=== PATIENT | male | born 1970 | race Caucasian/White ===

== ENCOUNTER 2018-02-16 20:48 | Observation (INO) | payer SELFPAY ==
[2018-02-16 21:30] LABS: #Eosinphils 0.2 thou/uL (0.0-0.7); #Lymphocytes 1.8 thou/uL (1.20-3.40); #Monocytes 0.8 thou/uL (0.11-0.59); %Basophils 0.6 % (0.0-1.0); %Monocytes 9.5 % (0.0-10.0); %Neutrophils 63.9 % (42.0-75.0); Hemoglobin 13.3 g/dL (14.0-18.0); Mean Corpuscular Hemoglobin 34.2 pg (27.0-31.0); Mean Platelet Volume 7.3 fL (7.4-10.4); Platelet Count 240 thou/uL (130-400); RBC Distribution Width 10.8 % (11.5-14.5); White Blood Cell (WBC) Count 7.9 thou/uL (4.8-10.8)
[2018-02-16 21:57] LABS: Acetaminophen Less than 6.0 mcg/mL (10.0-30.0); Alcohol 144 mg/dL (Less than 10); Salicylate Less than 8.0 mg/dL (15.0-30.0)
[2018-02-16 21:58] LABS: ALT (SGPT) 8 U/L (8-55); AST (SGOT) 19 U/L (5-34); Alkaline Phosphatase 51 U/L (40-150); Anion Gap 12 mmol/L (10-20); BUN (Urea Nitrogen) 8 mg/dL (8.9-20.6); Bilirubin, Total 0.4 mg/dL (0.2-1.2); Calc. Creatinine Clearance 0 mL/min (70-130); Carbon Dioxide 24 mmol/L (22-29); Chloride 101 mmol/L (98-107); Estimated GFR-MDRD Greater than 90; Globulin 3.8 g/dL (2.4-3.5); Glucose 107 mg/dL (70-105); Potassium 3.3 mmol/L (3.5-5.1); Protein, Total 7.8 g/dL (6.0-8.3); Sodium 134 mmol/L (136-145)
--- NOTE | 2018-02-16 22:37 | PDOC.FPRHP ---
- History of Present Illness Chief Complaint: Olanzapine over dose History of Present Illness: This is a 47 yo male with a PMH of Bipolar disorder who presents to the ED with a cc of olanzapine overdose. EMS and ED doctor report that pt. took 20 olanzapine 5mg tablets in a suicide attempt. He reported that he and his girlfriend just broke up. In the room, pt. was unable to answer any questions due to his lethargy. - Allergies/Adverse Reactions Allergies Allergy/AdvReac Type Severity Reaction Status Date / Time No Known Drug Allergies Allergy Verified 02/17/18 01:44 - History PMHx: Bipolar PSHx: Unknown FHx: Unknown Social: Smokes 1/2 pack per day - Review of Systems ROS unobtainable: due to mental status (Pt. only reports that he is sleepy) - Vital signs BP: 117/66 HR: 81 RR: 16 Tmax: 97.6 Pox: 96% on ra Wt: 81.5 - Physical Exam Constitutional: other (Asleep, difficult to arouse, oriented to name and place) HEENT: normocephalic and atraumatic, MMM Neck: supple, trachea midline Heart: RRR, normal S1/S2, no murmurs/rubs/gallops Lungs: CTAB, no respiratory distress, good air movement, no wheezing Abdomen: soft, bowel sounds present, no masses/distention Musculoskeletal: normal structure, normal tone, ROM grossly normal Skin: no rash/lesions, good turgor Heme/Lymphatic: no unusual bruising or bleeding FMR H&P: Results - Labs Result Diagrams: 02/17/18 04:40 02/17/18 04:40 Lab results: WBC 7.9 thou/uL (4.8-10.8) 02/16/18 21:14 Hgb 13.3 g/dL (14.0-18.0) L 02/16/18 21:14 Hct 40.4 % (42.0-52.0) L 02/16/18 21:14 MCV 103.0 fL (78.0-98.0) H 02/16/18 21:14 Plt Count 240 thou/uL (130-400) 02/16/18 21:14 Neutrophils % 63.9 % (42.0-75.0) 02/16/18 21:14 Sodium 134 mmol/L (136-145) L 02/16/18 21:14 Potassium 3.3 mmol/L (3.5-5.1) L 02/16/18 21:14 Chloride 101 mmol/L (98-107) 02/16/18 21:14 Carbon Dioxide 24 mmol/L (22-29) 02/16/18 21:14 BUN 8 mg/dL (8.9-20.6) L 02/16/18 21:14 Creatinine 0.89 mg/dL (0.6-1.3) 02/16/18 21:14 Glucose 107 mg/dL (70-105) H 02/16/18 21:14 Calcium 9.0 mg/dL (7.8-10.44) 02/16/18 21:14 Total Bilirubin 0.4 mg/dL (0.2-1.2) 02/16/18 21:14 AST 19 U/L (5-34) 02/16/18 21:14 ALT 8 U/L (8-55) 02/16/18 21:14 Alkaline Phosphatase 51 U/L (40-150) 02/16/18 21:14 Serum Total Protein 7.8 g/dL (6.0-8.3) 02/16/18 21:14 Albumin 4.0 g/dL (3.5-5.0) 02/16/18 21:14 - EKG Interpretation EKG: NSR FMR H&P: A/P - Problem List (1) Suicide attempt by substance overdose Status: Acute Code(s): T65.92XA - TOXIC EFFECT OF UNSP SUBSTANCE, INTENTIONAL SELF-HARM, INIT (2) Intentional olanzapine overdose Status: Acute Code(s): T43.592A - POISONING BY OTH ANTIPSYCHOT/NEUROLEPT, SELF -HARM, INIT (3) Bipolar disorder Status: Acute Code(s): F31.9 - BIPOLAR DISORDER, UNSPECIFIED (4) Tobacco abuse disorder Status: Acute Code(s): Z72.0 - TOBACCO USE - Plan This is a 47 yo male with a pmh of bipolar disorder Suicide attempt by olanzapine over dose -Admit to tele obs -ER called poison control and was instructed to monitor pt. with tele to ensure pt. remains vitally stable -Arrange for a sitter -Obtain more medical information once pt is more awake -NS with 20 meq of K Bipolar disorder -Consult [facility] once medically stable Tobacco abuse disorder -Encourage cessation once pt. is awake Hypokalemia -NS with 20 meq of K Alcohol abuse -BAL 144 -Aware, will quantify once awake and direct treatment based on results Code: Full Prophylaxis: SCDs Family: None at bedside Disposition: DC in 1-2 days FMR H&P: Upper Level - Pertinent history 47 yo male here for overdose. Most of history pulled from ER report and EMS. According to EMS report, 911 call was received around 20:20 tonight, not sure of who called. Patient ingested 20 tablets of olanzapine sometime this afternoon. Patient is sleeping initially and difficult to rouse. He does wake to his name and follows commands such as taking a deep breath and sticking out tongue, but does not answer open ended questions such as what has been going on tonight. Will answer his name. Unable to pull history including medications, medical history, PCP, prescribing provider of meds, etc. ER called and discussed case with poison control, their recommendation was to observe him over the next 6 hours. - Pertinent findings 117/66 HR: 81 RR: 16 Temp: 97.6 96% on RA GEN: sleeping, oriented to city location, does not answer day of week. PULM: CTAB CARD: RRR ABD: BSx4 EXT: sensation in LE intact NEURO: limited exam due to patient non-compliance; GCS 11 (eyes to verbal command, verbal incomprehensible sounds, obeys commands) Labs reviewed, pertinent noted here K: 3.3 Na: 134 AST/ALT: 19/8 tBili: 0.4 plasma EtOH: 144 salicylates: <8.0 acetaminophen: <6.0 - Plan Date/Time: 02/16/182226 I, Michael Brunson DO, have evaluated this patient and agree with findings/plan as outlined by landscape maintenance internship resident. Pertinent changes/additions are listed here. #olanzapine overdose -will continue to monitor for respiratory depression, at this time he is, and has been, hemodynamically stable -attempt to get more history in the AM from patient #EtOH intoxication -fluids and sleep #hypokalemic -fluid hydration with added potassium -recheck BMP tomorrow morning Attending Addendum - Attending Addendum Date/Time: 02/17/182045 I personally evaluated the patient and discussed the management with Dr. Arce on 02/16/18 I agree with the History, Examination, Assessment and Plan documented above with any addition or exceptions noted below- 47 yo male here for overdose with olanzapine. History obtained from from ER report and EMS due to patient's somnolence. pER RECORDS, Patient ingested 20 tablets of olanzapine sometime this afternoon. Patient is sleeping initially and difficult to rouse. He does wake to his name and follows commands such as taking a deep breath and sticking out tongue, but does not answer open ended questions such as what has been going on tonight. Will answer his name. UNable to obtain PMH/PSH/All/Meds due to patient's condition. Afebrile VSS. Exam repeated by me and agree with resident's findings. Labs: UDS negative, LXGS=240, CBC normal, K=3.3. A/P: 1) Overdose with olanzapine- per Poison Control- monitor on telemetry for 6 hours. Plam for MR consult once medically cleared. 2) Hypokalemia- potassium replacement.
[2018-02-17] MEDS ORDERED: Acetaminophen 325 MG TAB PO PRN (00:02)
[2018-02-17] MEDS ORDERED: Ondansetron ODT 4 MG TAB PO PRN (00:02)
[2018-02-17] MEDS ORDERED: NS 0.9% w/ 20 MEQ KCL 1,000 ML/1,000 ML BAG IV SCH (00:02)
[2018-02-17 00:44] VITALS: BMI 23.5
[2018-02-17 00:53] LABS: Amphetamine Not Detected (NotDetected); Barbiturates Screen Not Detected (NotDetected); Benzodiazepine Screen Not Detected (NotDetected); Cocaine Metabolite Screen Not Detected (NotDetected); Medtox Control Line Valid? VALID (VALID); Medtox Reader # READER 4; Methadone Not Detected (NotDetected); Methamphetamine Not Detected (NotDetected); Opiate Screen Not Detected (NotDetected); Oxycodone Screen Not Detected (NotDetected); Phencyclidine (PCP) Not Detected (NotDetected); THC/Cannabinoid Screen Not Detected (NotDetected); Tricyclic Screen Not Detected (NotDetected)
[2018-02-17 05:09] LABS: #Basophils 0.1 thou/uL (0.0-0.2); #Eosinphils 0.4 thou/uL (0.0-0.7); #Lymphocytes 2.1 thou/uL (1.20-3.40); #Monocytes 0.7 thou/uL (0.11-0.59); #Neutrophils 2.7 thou/uL (1.40-6.50); %Basophils 0.9 % (0.0-1.0); %Eosinophils 6.6 % (0.0-10.0); %Lymphocytes 35.7 % (21.0-51.0); %Monocytes 11.2 % (0.0-10.0); %Neutrophils 45.5 % (42.0-75.0); Hemoglobin 13.3 g/dL (14.0-18.0); Mean Corpuscular HGB CONC 32.2 g/dL (32.0-36.0); Mean Corpuscular Hemoglobin 33.2 pg (27.0-31.0); Mean Platelet Volume 7.3 fL (7.4-10.4); Platelet Count 263 thou/uL (130-400); RBC Distribution Width 10.9 % (11.5-14.5); Red Blood Cell (RBC) Count 4.02 mill/uL (4.70-6.10); White Blood Cell (WBC) Count 5.9 thou/uL (4.8-10.8)
[2018-02-17 05:25] LABS: ALT (SGPT) 9 U/L (8-55); AST (SGOT) 17 U/L (5-34); Albumin 3.8 g/dL (3.5-5.0); Alkaline Phosphatase 47 U/L (40-150); Anion Gap 9 mmol/L (10-20); BUN (Urea Nitrogen) 6 mg/dL (8.9-20.6); Bilirubin, Total 0.7 mg/dL (0.2-1.2); Calc. Creatinine Clearance 122 mL/min (70-130); Calcium 8.9 mg/dL (7.8-10.44); Carbon Dioxide 29 mmol/L (22-29); Chloride 104 mmol/L (98-107); Estimated GFR-MDRD Greater than 90; Globulin 3.4 g/dL (2.4-3.5); Glucose 90 mg/dL (70-105); Potassium 3.5 mmol/L (3.5-5.1); Protein, Total 7.2 g/dL (6.0-8.3); Sodium 138 mmol/L (136-145)
--- NOTE | 2018-02-17 08:08 | PDOC.FM ---
- Subjective Subjective: Pt is still quite sleepy this morning and was unable to provide answers to question other than the following. Denies pain, reports olanzapine use at home. - Objective MAR Reviewed: Yes Vital Signs & Weight: Vital Signs (12 hours) Temp Pulse Resp BP BP Pulse Ox 02/17/18 04:00 98.4 F 73 16 99/57 L 96 02/17/18 00:35 97.5 F L 58 L 16 126/74 96 Weight Weight 76.459 kg I&O: 02/16/18 02/17/18 02/18/18 06:59 06:59 06:59 Intake Total 625 Output Total 600 Balance 25 Result Diagrams: 02/17/18 04:40 02/17/18 04:40 <Xavier Belcher - Last Filed: 02/17/18 08:06> - Objective Vital Signs & Weight: Vital Signs (12 hours) Temp Pulse Resp BP Pulse Ox 02/17/18 16:20 97.3 F L 74 16 133/86 96 02/17/18 08:00 98.6 F 63 18 124/67 95 Weight Weight 76.459 kg I&O: 02/16/18 02/17/18 02/18/18 06:59 06:59 06:59 Intake Total 625 Output Total 600 Balance 25 Result Diagrams: 02/17/18 04:40 02/17/18 04:40 <aRchel Melendez - Last Filed: 02/17/18 19:14> Phys Exam - Physical Examination Constitutional: NAD HEENT: moist MMs, sclera anicteric Neck: no JVD, supple Respiratory: no wheezing, clear to auscultation bilateral Cardiovascular: RRR, no significant murmur Gastrointestinal: soft, non-tender Musculoskeletal: no edema, pulses present Deviation from normal: pt asleep with limited responsiveness to questions Skin: no rash, normal turgor <Xavier Belcher - Last Filed: 02/17/18 08:06> Dx/Plan (1) Intentional olanzapine overdose Code(s): T43.592A - POISONING BY OTH ANTIPSYCHOT/NEUROLEPT, SELF-HARM, INIT Status: Acute (2) Bipolar disorder Code(s): F31.9 - BIPOLAR DISORDER, UNSPECIFIED Status: Acute (3) Tobacco abuse disorder Code(s): Z72.0 - TOBACCO USE Status: Acute - Plan Plan: This is a 47 yo male with a pmh of bipolar disorder presented with intentional Olanzapine OD Suicide attempt by olanzapine over dose A- ER called poison control and was instructed to monitor pt. with tele to ensure pt. remains vitally stable P- Pt has sitter - Obtain more medical information once pt is more awake - Maintenance fluids Bipolar disorder -MR has been consulted Tobacco abuse -Encourage cessation once pt. is awake Hypokalemia -resolved -replenished Alcohol abuse -BAL 144 -Aware, will quantify once awake and direct treatment based on results Code: Full Prophylaxis: SCDs Disposition: DC in 1-2 days <Xavier Belcher - Last Filed: 02/17/18 08:06> Attending Addendum - Attending Addendum Date/Time: 02/17/18 1110 I personally evaluated the patient and discussed the management with Dr. Belcher. I agree with the History, Examination, Assessment and Plan documented above with any addition or exceptions noted below. The patient is more awake but still exhibiting suicidal ideation. Will consult [facility]. <Rachel Melendez - Last Filed: 02/17/18 19:14>
[2018-02-17 17:43] VITALS: BP 133/86; TEMP 97.3
--- NOTE | 2018-02-18 00:08 | DIS-2 ---
DATE OF ADMISSION: 02/17/2018 DATE OF DISCHARGE: 02/17/2018 ADMITTING ATTENDING: Lynda Tse M.D. DISCHARGE ATTENDING: Rachel Melendez M.D RESIDENT: Dr. Xavier Belcher. CONSULTATIONS: Poison Control. PROCEDURES: None. PRIMARY DIAGNOSIS: Intentional overdose of olanzapine. SECONDARY DIAGNOSIS: None. DISCHARGE MEDICATIONS: None. DISCONTINUED MEDICATIONS: None. HISTORY OF PRESENT ILLNESS AND HOSPITAL COURSE: This is a 47-year-old previously healthy male other than diagnosis of bipolar disease, who presented to the ED after intentional overdose of olanzapine. Patient reported he had taken 25 mg olanzapine tablets totalling a total of 100 mg of olanzapine, as he was upset about an argument he had with his girlfriend. On presentation, patient was excessively sleepy though stable. Poison Control was consulted and recommended to watch the patient's vitals fo r 6 hours for medical clearance. Lab work was done and kidney and hepatic function were within anam l limits. IV fluids were started and patient was admitted for medical observation. As the morning p rogressed, patient recovered mental function over the course of hours and by midmorning was alert and oriented x3. Patient reported this was not the first suicide attempt. [facility] was consulted for place ment after patient was medically cleared, and patient was transferred for inpatient psych. DISPOSITION: Stable. DISCHARGE INSTRUCTIONS: 1. Location: [facility] placement. 2. Diet: Regular. 3. Activity: As tolerated. 4. Follow up: Per MR placement. 5. Recommendations and with primary care physician after discharge from inpatient psych.
[2018-02-18] MEDS ORDERED: Prevnar 13-Val Conj/PF 0.5 ML SYRINGE IM ONE (09:00)
--- NOTE | 2018-02-23 13:43 | EKG ---
Test Reason : Blood Pressure : / mmHG Vent. Rate : 067 BPM Atrial Rate : 067 BPM P-R Int : 122 ms QRS Dur : 100 ms QT Int : 442 ms P-R-T Axes : 058 046 049 degrees QTc Int : 467 ms Normal sinus rhythm Minimal voltage criteria for LVH, may be normal variant Abnormal ECG Confirmed by ROSEMARY MARY ([id number]), digital editor NIKOLAY MANN ([id number]) on 02/23/2018 1:42:54 PM Referred By: Confirmed By:ROSEMARY MARY
== END 2018-02-17 16:45 ==
LOC: ERS 20:48 → 2NO 02-17 00:03
PROVIDERS: ADMIT Family Medicine; ATTEND Family Medicine
DX: T43.592A Poisoning by other antipsychotics and neuroleptics, intentional self-harm, initial encounter (principal); F31.9 Bipolar disorder, unspecified; E87.6 Hypokalemia; F17.200 Nicotine dependence, unspecified, uncomplicated
CPT/HCPCS: 36415; 80053; 80306; 80307; 82550; 84443; 85025; 93005; G0378

== ENCOUNTER 2018-03-04 20:43 | Emergency (ER) | payer SELFPAY ==
[2018-03-04 21:41] LABS: #Basophils 0.1 thou/uL (0.0-0.2); #Eosinphils 0.4 thou/uL (0.0-0.7); #Monocytes 0.8 thou/uL (0.11-0.59); #Neutrophils 4.1 thou/uL (1.40-6.50); %Basophils 1.3 % (0.0-1.0); %Eosinophils 4.3 % (0.0-10.0); %Lymphocytes 36.4 % (21.0-51.0); %Neutrophils 49.1 % (42.0-75.0); Hemoglobin 13.5 g/dL (14.0-18.0); Mean Corpuscular HGB CONC 34.5 g/dL (32.0-36.0); Mean Corpuscular Hemoglobin 34.4 pg (27.0-31.0); Mean Corpuscular Volume 99.7 fL (78.0-98.0); Mean Platelet Volume 7.2 fL (7.4-10.4); Platelet Count 266 thou/uL (130-400); RBC Distribution Width 10.9 % (11.5-14.5); Red Blood Cell (RBC) Count 3.92 mill/uL (4.70-6.10); White Blood Cell (WBC) Count 8.3 thou/uL (4.8-10.8)
[2018-03-04 22:09] LABS: ALT (SGPT) 12 U/L (8-55); AST (SGOT) 32 U/L (5-34); Acetaminophen Less than 6.0 mcg/mL (10.0-30.0); Albumin 4.2 g/dL (3.5-5.0); Alcohol 322 mg/dL (Less than 10); Alkaline Phosphatase 59 U/L (40-150); Anion Gap 14 mmol/L (10-20); BUN (Urea Nitrogen) 9 mg/dL (8.9-20.6); Bilirubin, Total 0.2 mg/dL (0.2-1.2); Calc. Creatinine Clearance 0 mL/min (70-130); Calcium 8.9 mg/dL (7.8-10.44); Carbon Dioxide 24 mmol/L (22-29); Chloride 102 mmol/L (98-107); Estimated GFR-MDRD 87; Glucose 101 mg/dL (70-105); Potassium 3.6 mmol/L (3.5-5.1); Protein, Total 8.2 g/dL (6.0-8.3); Salicylate Less than 8.0 mg/dL (15.0-30.0); Sodium 136 mmol/L (136-145)
[2018-03-04 22:11] LABS: Bilirubin Negative (Negative); Blood, Urine Negative (Negative); Clarity CLEAR (Clear); Glucose, Urine (Dipstick) Negative (Negative); Leukocyte Negative (Negative); Nitrite Negative (Negative); Protein, Urine (Dipstick) Negative (Neg-Trace); Specific Gravity, Urine 1.002 (1.002-1.036); Urobilinogen 0.2 mg/dL (0.2-1.0); pH, Urine 5.5 (5.0-9.0)
[2018-03-04 22:19] LABS: Amphetamine Not Detected (NotDetected); Barbiturates Screen Not Detected (NotDetected); Benzodiazepine Screen Not Detected (NotDetected); Cocaine Metabolite Screen Not Detected (NotDetected); Medtox Control Line Valid? VALID (VALID); Medtox Reader # READER 4; Methadone Not Detected (NotDetected); Methamphetamine Not Detected (NotDetected); Opiate Screen Not Detected (NotDetected); Oxycodone Screen Not Detected (NotDetected); Phencyclidine (PCP) Not Detected (NotDetected); THC/Cannabinoid Screen Not Detected (NotDetected); Tricyclic Screen Not Detected (NotDetected)
[2018-03-05] MEDS ORDERED: Ziprasidone 20 MG CAP ONE (02:30)
[2018-03-05] MEDS ORDERED: Nicotine 14 MG PATCH TOP SCH (02:30)
[2018-03-05] MEDS ORDERED: Nicotine 14 MG PATCH ONE (02:30)
== END 2018-03-05 16:10 | disposition home or self-care (01) ==
LOC: ERS 20:43
DX: F10.129 Alcohol abuse with intoxication, unspecified (principal); R45.851 Suicidal ideations; F31.9 Bipolar disorder, unspecified; F17.210 Nicotine dependence, cigarettes, uncomplicated; Y90.8 Blood alcohol level of 240 mg/100 ml or more
CPT/HCPCS: 36415; 80053; 80306; 80307; 81003; 82550; 84443; 85025; 93005; 99284

== ENCOUNTER 2018-03-08 11:00 | Emergency (ER) | payer SELFPAY ==
[2018-03-08 11:27] LABS: #Basophils 0.1 thou/uL (0.0-0.2); #Eosinphils 0.2 thou/uL (0.0-0.7); #Lymphocytes 1.7 thou/uL (1.20-3.40); #Monocytes 1.3 thou/uL (0.11-0.59); #Neutrophils 6.4 thou/uL (1.40-6.50); %Basophils 0.6 % (0.0-1.0); %Eosinophils 2.3 % (0.0-10.0); %Lymphocytes 17.3 % (21.0-51.0); %Monocytes 13.2 % (0.0-10.0); %Neutrophils 66.6 % (42.0-75.0); Hemoglobin 13.4 g/dL (14.0-18.0); Mean Corpuscular HGB CONC 33.5 g/dL (32.0-36.0); Mean Corpuscular Hemoglobin 33.5 pg (27.0-31.0); Mean Platelet Volume 7.2 fL (7.4-10.4); Platelet Count 254 thou/uL (130-400); Red Blood Cell (RBC) Count 4.01 mill/uL (4.70-6.10); White Blood Cell (WBC) Count 9.7 thou/uL (4.8-10.8)
[2018-03-08 11:43] LABS: ALT (SGPT) 11 U/L (8-55); AST (SGOT) 36 U/L (5-34); Albumin 4.2 g/dL (3.5-5.0); Alkaline Phosphatase 63 U/L (40-150); Anion Gap 14 mmol/L (10-20); BUN (Urea Nitrogen) 9 mg/dL (8.9-20.6); Bilirubin, Total 0.3 mg/dL (0.2-1.2); Calc. Creatinine Clearance 0 mL/min (70-130); Calcium 8.9 mg/dL (7.8-10.44); Carbon Dioxide 24 mmol/L (22-29); Chloride 102 mmol/L (98-107); Estimated GFR-MDRD Greater than 90; Globulin 4.1 g/dL (2.4-3.5); Glucose 105 mg/dL (70-105); Potassium 4.2 mmol/L (3.5-5.1); Protein, Total 8.3 g/dL (6.0-8.3); Sodium 136 mmol/L (136-145)
[2018-03-08 11:45] LABS: Acetaminophen Less than 6.0 mcg/mL (10.0-30.0); Alcohol 318 mg/dL (Less than 10); Lipase 34 U/L (8-78); Salicylate Less than 8.0 mg/dL (15.0-30.0)
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
[2018-03-08] MEDS ORDERED: ISOVUE-370 76%-LOCM 1 ML ONE (13:40)
== END 2018-03-08 12:50 | disposition home or self-care (01) ==
LOC: ERS 11:00
DX: S06.9X9A Unspecified intracranial injury with loss of consciousness of unspecified duration, initial encounter (principal); S80.11XA Contusion of right lower leg, initial encounter; F10.129 Alcohol abuse with intoxication, unspecified; X58.XXXA Exposure to other specified factors, initial encounter; F17.210 Nicotine dependence, cigarettes, uncomplicated
CPT/HCPCS: 70450; 71260; 72125; 74177; 80053; 80307; 83690; 85025; 96360; G0390

== ENCOUNTER 2018-03-29 21:32 | Emergency (ER) | payer SELFPAY ==
[2018-03-29] MEDS ORDERED: Ketorolac Tromethamine 60 MG/2 ML VIAL ONE (21:49)
[2018-03-29] MEDS ORDERED: Silver Sulfadiazine 1% Cream 50 GM JAR ONE (21:49)
== END 2018-03-29 22:14 | disposition home or self-care (01) ==
LOC: ERS 21:32
DX: T22.251A Burn of second degree of right shoulder, initial encounter (principal); F41.9 Anxiety disorder, unspecified; F32.9 Major depressive disorder, single episode, unspecified; X19.XXXA Contact with other heat and hot substances, initial encounter
CPT/HCPCS: 16020; J1885

== ENCOUNTER 2018-05-06 20:41 | Emergency (ER) | payer SELFPAY ==
[2018-05-06 21:20] LABS: #Basophils 0.1 thou/uL (0.0-0.2); #Eosinphils 0.2 thou/uL (0.0-0.7); #Lymphocytes 2.7 thou/uL (1.20-3.40); #Monocytes 0.5 thou/uL (0.11-0.59); #Neutrophils 2.4 thou/uL (1.40-6.50); %Basophils 1.1 % (0.0-1.0); %Monocytes 7.9 % (0.0-10.0); Hemoglobin 12.9 g/dL (14.0-18.0); Mean Corpuscular Hemoglobin 34.3 pg (27.0-31.0); Mean Platelet Volume 7.2 fL (7.4-10.4); Platelet Count 186 thou/uL (130-400); RBC Distribution Width 11.5 % (11.5-14.5); Red Blood Cell (RBC) Count 3.75 mill/uL (4.70-6.10); White Blood Cell (WBC) Count 5.8 thou/uL (4.8-10.8)
[2018-05-06] MEDS ORDERED: Acetaminophen 500 MG TAB ONE (21:32)
[2018-05-06 21:36] LABS: ALT (SGPT) 10 U/L (8-55); AST (SGOT) 22 U/L (5-34); Acetaminophen Less than 6.0 mcg/mL (10.0-30.0); Albumin 4.1 g/dL (3.5-5.0); Alcohol 297 mg/dL (Less than 10); Alkaline Phosphatase 59 U/L (40-150); Anion Gap 14 mmol/L (10-20); BUN (Urea Nitrogen) 7 mg/dL (8.9-20.6); Bilirubin, Total 0.2 mg/dL (0.2-1.2); Calc. Creatinine Clearance 0 mL/min (70-130); Calcium 8.9 mg/dL (7.8-10.44); Carbon Dioxide 24 mmol/L (22-29); Chloride 102 mmol/L (98-107); Estimated GFR-MDRD Greater than 90; Globulin 3.5 g/dL (2.4-3.5); Glucose 100 mg/dL (70-105); Potassium 3.7 mmol/L (3.5-5.1); Protein, Total 7.6 g/dL (6.0-8.3); Salicylate Less than 8.0 mg/dL (15.0-30.0); Sodium 136 mmol/L (136-145)
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
[2018-05-07 00:12] LABS: Bilirubin Negative (Negative); Blood, Urine Negative (Negative); Clarity CLEAR (Clear); Glucose, Urine (Dipstick) Negative (Negative); Leukocyte Negative (Negative); Nitrite Negative (Negative); Protein, Urine (Dipstick) Negative (Neg-Trace); Specific Gravity, Urine 1.005 (1.002-1.036); Urobilinogen 0.2 mg/dL (0.2-1.0); pH, Urine 5.5 (5.0-9.0)
[2018-05-07 00:23] LABS: Amphetamine Not Detected (NotDetected); Barbiturates Screen Not Detected (NotDetected); Benzodiazepine Screen Detected (NotDetected); Cocaine Metabolite Screen Not Detected (NotDetected); Medtox Control Line Valid? VALID (VALID); Medtox Reader # READER 4; Methadone Not Detected (NotDetected); Methamphetamine Not Detected (NotDetected); Opiate Screen Not Detected (NotDetected); Oxycodone Screen Not Detected (NotDetected); Phencyclidine (PCP) Not Detected (NotDetected); THC/Cannabinoid Screen Not Detected (NotDetected); Tricyclic Screen Not Detected (NotDetected)
== END 2018-05-07 14:42 | disposition home or self-care (01) ==
LOC: ERS 20:41
DX: F32.9 Major depressive disorder, single episode, unspecified (principal); F41.9 Anxiety disorder, unspecified
CPT/HCPCS: 36415; 70450; 80053; 80306; 80307; 81003; 84443; 85025

== ENCOUNTER → 2018-05-10 | Emergency (ER) | payer SELFPAY ==
[~2018-05-10] MED LIST: Ibuprofen 200 MG TAB ONE; traZODone HCl 50 MG TAB ONE
[2018-05-10 20:09] LABS: #Eosinphils 0.1 thou/uL (0.0-0.7); #Lymphocytes 2.3 thou/uL (1.20-3.40); #Monocytes 0.5 thou/uL (0.11-0.59); #Neutrophils 2.7 thou/uL (1.40-6.50); %Basophils 0.8 % (0.0-1.0); %Eosinophils 2.3 % (0.0-10.0); %Monocytes 7.9 % (0.0-10.0); %Neutrophils 48.1 % (42.0-75.0); Mean Corpuscular HGB CONC 33.9 g/dL (32.0-36.0); Mean Corpuscular Hemoglobin 34.3 pg (27.0-31.0); Mean Platelet Volume 6.5 fL (7.4-10.4); Platelet Count 264 thou/uL (130-400); RBC Distribution Width 11.9 % (11.5-14.5); Red Blood Cell (RBC) Count 4.08 mill/uL (4.70-6.10); White Blood Cell (WBC) Count 5.7 thou/uL (4.8-10.8)
[2018-05-10 20:35] LABS: ALT (SGPT) 11 U/L (8-55); AST (SGOT) 22 U/L (5-34); Acetaminophen Less than 6.0 mcg/mL (10.0-30.0); Albumin 4.2 g/dL (3.5-5.0); Alcohol 314 mg/dL (Less than 10); Alkaline Phosphatase 58 U/L (40-150); Anion Gap 13 mmol/L (10-20); BUN (Urea Nitrogen) 6 mg/dL (8.9-20.6); Bilirubin, Total 0.3 mg/dL (0.2-1.2); CK (CPK) 139 U/L (30-200); Calc. Creatinine Clearance 0 mL/min (70-130); Carbon Dioxide 26 mmol/L (22-29); Chloride 95 mmol/L (98-107); Estimated GFR-MDRD Greater than 90; Globulin 3.7 g/dL (2.4-3.5); Glucose 84 mg/dL (70-105); Protein, Total 7.9 g/dL (6.0-8.3); Salicylate Less than 8.0 mg/dL (15.0-30.0); Sodium 130 mmol/L (136-145)
[2018-05-10 22:40] LABS: Bilirubin Negative (Negative); Blood, Urine Negative (Negative); Clarity CLEAR (Clear); Glucose, Urine (Dipstick) Negative (Negative); Leukocyte Negative (Negative); Nitrite Negative (Negative); Protein, Urine (Dipstick) Negative (Neg-Trace); Specific Gravity, Urine 1.004 (1.002-1.036); Urobilinogen 0.2 mg/dL (0.2-1.0); pH, Urine 5.5 (5.0-9.0)
[2018-05-10 22:49] LABS: Amphetamine Not Detected (NotDetected); Barbiturates Screen Not Detected (NotDetected); Benzodiazepine Screen Detected (NotDetected); Cocaine Metabolite Screen Not Detected (NotDetected); Medtox Control Line Valid? VALID (VALID); Medtox Reader # READER 1; Methadone Not Detected (NotDetected); Methamphetamine Not Detected (NotDetected); Opiate Screen Not Detected (NotDetected); Oxycodone Screen Not Detected (NotDetected); Phencyclidine (PCP) Not Detected (NotDetected); THC/Cannabinoid Screen Not Detected (NotDetected); Tricyclic Screen Not Detected (NotDetected)
[2018-05-11 07:53] LABS: Alcohol 49 mg/dL (Less than 10); Anion Gap 14 mmol/L (10-20); BUN (Urea Nitrogen) 7 mg/dL (8.9-20.6); Calc. Creatinine Clearance 0 mL/min (70-130); Carbon Dioxide 25 mmol/L (22-29); Chloride 102 mmol/L (98-107); Estimated GFR-MDRD Greater than 90; Glucose 89 mg/dL (70-105); Potassium 4.3 mmol/L (3.5-5.1); Sodium 137 mmol/L (136-145)
== END ==
LOC: ERS 19:29
DX: F10.10 Alcohol abuse, uncomplicated (principal); R45.851 Suicidal ideations; Z71.6 Tobacco abuse counseling; F41.9 Anxiety disorder, unspecified; F32.9 Major depressive disorder, single episode, unspecified; F17.210 Nicotine dependence, cigarettes, uncomplicated
CPT/HCPCS: 36415; 80048; 80053; 80306; 80307; 81003; 82550; 84443; 85025; 99406

== ENCOUNTER 2018-07-10 01:16 | Emergency (ER) | payer SELFPAY ==
[2018-07-10] MEDS ORDERED: Morphine 2 MG/ML SYRINGE ONE (01:36)
[2018-07-10 01:46] LABS: #Basophils 0.1 thou/uL (0.0-0.2); #Eosinphils 0.2 thou/uL (0.0-0.7); #Lymphocytes 2.3 thou/uL (1.20-3.40); #Monocytes 0.6 thou/uL (0.11-0.59); %Basophils 2.5 % (0.0-1.0); %Eosinophils 3.6 % (0.0-10.0); %Lymphocytes 44.5 % (21.0-51.0); %Monocytes 11.3 % (0.0-10.0); %Neutrophils 38.2 % (42.0-75.0); Hemoglobin 14.2 g/dL (14.0-18.0); Mean Corpuscular HGB CONC 33.8 g/dL (32.0-36.0); Mean Corpuscular Hemoglobin 34.5 pg (27.0-31.0); Mean Platelet Volume 7.2 fL (7.4-10.4); Platelet Count 138 thou/uL (130-400); RBC Distribution Width 12.5 % (11.5-14.5); Red Blood Cell (RBC) Count 4.11 mill/uL (4.70-6.10); White Blood Cell (WBC) Count 5.2 thou/uL (4.8-10.8)
[2018-07-10 02:15] LABS: ALT (SGPT) 50 U/L (8-55); AST (SGOT) 107 U/L (5-34); Albumin 4.4 g/dL (3.5-5.0); Alcohol 331 mg/dL (Less than 10); Alkaline Phosphatase 59 U/L (40-150); Anion Gap 14 mmol/L (10-20); BUN (Urea Nitrogen) 8 mg/dL (8.9-20.6); Bilirubin, Total 0.6 mg/dL (0.2-1.2); Calc. Creatinine Clearance 0 mL/min (70-130); Calcium 9.1 mg/dL (7.8-10.44); Carbon Dioxide 29 mmol/L (22-29); Chloride 97 mmol/L (98-107); Estimated GFR-MDRD Greater than 90; Globulin 3.9 g/dL (2.4-3.5); Glucose 98 mg/dL (70-105); Potassium 4.5 mmol/L (3.5-5.1); Protein, Total 8.3 g/dL (6.0-8.3); Sodium 135 mmol/L (136-145)
[2018-07-10 03:08] LABS: Bilirubin Negative (Negative); Blood, Urine Negative (Negative); Clarity CLEAR (Clear); Glucose, Urine (Dipstick) Negative (Negative); Leukocyte Negative (Negative); Nitrite Negative (Negative); Protein, Urine (Dipstick) Negative (Neg-Trace); Specific Gravity, Urine 1.017 (1.002-1.036); Urobilinogen 0.2 mg/dL (0.2-1.0); pH, Urine 6.5 (5.0-9.0)
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
[2018-07-10] MEDS ORDERED: ISOVUE-370 76%-LOCM 1 ML ONE (15:19)
== END 2018-07-10 05:48 | disposition home or self-care (01) ==
LOC: ERS 01:16
DX: M54.2 Cervicalgia (principal); R10.9 Unspecified abdominal pain; M54.9 Dorsalgia, unspecified; R30.0 Dysuria; R31.9 Hematuria, unspecified; Z86.73 Personal history of transient ischemic attack (TIA), and cerebral infarction without residual deficits; I25.2 Old myocardial infarction; F32.9 Major depressive disorder, single episode, unspecified; F41.9 Anxiety disorder, unspecified; F17.210 Nicotine dependence, cigarettes, uncomplicated; Y04.0XXA Assault by unarmed brawl or fight, initial encounter
CPT/HCPCS: 36415; 70450; 71260; 72125; 74177; 80053; 80307; 81003; 85025; 96372; J2270; Q9966

== ENCOUNTER 2018-07-20 16:38 | Emergency (ER) | payer SELFPAY ==
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
[2018-07-20] MEDS ORDERED: Acetaminophen 325 MG TAB ONE (18:00)
== END 2018-07-20 18:06 | disposition home or self-care (01) ==
LOC: ERS 16:38
DX: S06.0X0A Concussion without loss of consciousness, initial encounter (principal); S16.1XXA Strain of muscle, fascia and tendon at neck level, initial encounter; S29.9XXA Unspecified injury of thorax, initial encounter; Z86.73 Personal history of transient ischemic attack (TIA), and cerebral infarction without residual deficits; I25.2 Old myocardial infarction; F41.9 Anxiety disorder, unspecified; F32.9 Major depressive disorder, single episode, unspecified; F17.210 Nicotine dependence, cigarettes, uncomplicated; Y08.02XA Assault by strike by baseball bat, initial encounter
CPT/HCPCS: 70450; 71046; 72125

== ENCOUNTER 2018-08-28 21:14 | Observation (INO) | payer SELFPAY ==
[2018-08-28] MEDS ORDERED: Ketorolac Tromethamine 30 MG/ML VIAL ONE (21:32)
[2018-08-28] MEDS ORDERED: Morphine 4 MG/ML VIAL ONE (21:32)
[2018-08-28 21:46] LABS: #Basophils 0.1 thou/uL (0.0-0.2); #Eosinphils 0.2 thou/uL (0.0-0.7); #Lymphocytes 3.1 thou/uL (1.20-3.40); #Monocytes 0.7 thou/uL (0.11-0.59); #Neutrophils 3.4 thou/uL (1.40-6.50); %Basophils 1.4 % (0.0-1.0); %Eosinophils 2.7 % (0.0-10.0); %Lymphocytes 41.3 % (21.0-51.0); %Monocytes 9.2 % (0.0-10.0); %Neutrophils 45.4 % (42.0-75.0); Hemoglobin 12.6 g/dL (14.0-18.0); Mean Corpuscular HGB CONC 34.2 g/dL (32.0-36.0); Mean Corpuscular Hemoglobin 35.1 pg (27.0-31.0); Mean Platelet Volume 6.3 fL (7.4-10.4); Platelet Count 196 thou/uL (130-400); RBC Distribution Width 12.4 % (11.5-14.5); Red Blood Cell (RBC) Count 3.58 mill/uL (4.70-6.10); White Blood Cell (WBC) Count 7.5 thou/uL (4.8-10.8)
[2018-08-28 21:54] LABS: INR-International Normal Ratio 0.9; PTT 29.5 SEC (22.9-36.1)
[2018-08-28 22:05] LABS: ALT (SGPT) 16 U/L (8-55); AST (SGOT) 35 U/L (5-34); Acetaminophen Less than 6.0 mcg/mL (10.0-30.0); Albumin 4.4 g/dL (3.5-5.0); Alkaline Phosphatase 65 U/L (40-150); Anion Gap 16 mmol/L (10-20); BUN (Urea Nitrogen) 8 mg/dL (8.9-20.6); Bilirubin, Total 0.5 mg/dL (0.2-1.2); CK (CPK) 385 U/L (30-200); Calc. Creatinine Clearance 0 mL/min (70-130); Calcium 8.9 mg/dL (7.8-10.44); Carbon Dioxide 24 mmol/L (22-29); Chloride 100 mmol/L (98-107); Estimated GFR-MDRD Greater than 90; Globulin 3.8 g/dL (2.4-3.5); Glucose 103 mg/dL (70-105); Potassium 3.7 mmol/L (3.5-5.1); Protein, Total 8.2 g/dL (6.0-8.3); Salicylate Less than 8.0 mg/dL (15.0-30.0); Sodium 136 mmol/L (136-145)
[2018-08-28 22:11] LABS: Alcohol 402 mg/dL (Less than 10)
[2018-08-28] MEDS ORDERED: Adacel (T-DAP) 0.5 ML SYRINGE ONE (23:33)
[2018-08-28] MEDS ORDERED: Multivitamins, Adult 10 ML, Thiamine HCl 100 MG, Folic Acid 1 MG in Dextrose 5 %-0.45 %... IV SCH (23:59)
--- NOTE | 2018-08-29 | PDOC.FPRHP ---
- History of Present Illness Chief Complaint: snake bite History of Present Illness: The patient is a 47YOM with a PMH significant for Bipolar disorder and EtOH abuse who presented to the ED after being bitten by what he initially reported to be a copperhead on his right lower leg. Of note, the patient was noted to be a poor historian as he was significantly intoxicated on presentation to the ER and reportedly has a h/o bipolar with multiple previous suicide attempts. 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 The patient reports that he was walking in "the field" and was suddenly bit on the leg but a snake. He reports significant 10/10 sharp pain in his leg radiating all the way up to his chest with associated SOB and numbness/ tingling from his right toes all the way up to his left knee. He denies any associated fever/chills or N/V. 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 Social: 2-3 32oz beers/day, 1/2ppd x 6 weeks, no drug use - Review of Systems General: denies: fever/chills Eyes: denies: vision changes ENT: reports: other (no sore throat). denies: nasal congestion Respiratory: reports: shortness of breath. denies: cough Cardiovascular: reports: chest pain Gastrointestinal: reports: nausea. denies: vomiting, diarrhea, constipation, abdominal pain Genitourinary: reports: other (no frequency). denies: dysuria Skin: reports: lesions Musculoskeletal: reports: pain, tenderness, swelling Neurological: reports: numbness Psychological: reports: anxiety, depression - Vital signs BP: 137/85 HR: 72 RR: 19 Tmax: afebrile Pox: 99% on 2L NC Wt: 71 kg - Physical Exam Constitutional: awake, alert and oriented, well developed, other (mild distress 2/2 pain) HEENT: normocephalic and atraumatic, conjunctiva clear, grossly normal vision, grossly normal hearing Neck: supple, FROM Heart: RRR, normal S1/S2, pulses present Lungs: CTAB, no respiratory distress, good air movement, no rales/rhonchi, no wheezing, no retractions Abdomen: soft, bowel sounds present Musculoskeletal: normal structure, other (decreased ROM) Neurological: no focal deficit, CN II-XII intact (grossly) Skin: capillary refill <2 seconds, no jaundice Heme/Lymphatic: no unusual bruising or bleeding, no purpura, no petechia, other (mild edema in RLE with overlying erythema) Psychiatric: other (poor recent and remote memory with an anxious mood and affect) FMR H&P: Results - Labs Result Diagrams: 08/29/18 04:26 08/29/18 08:40 Lab results: WBC 7.5 thou/uL (4.8-10.8) 08/28/18 21:31 Hgb 12.6 g/dL (14.0-18.0) L 08/28/18 21:31 Hct 36.8 % (42.0-52.0) L 08/28/18 21:31 MCV 103.0 fL (78.0-98.0) H 08/28/18 21:31 Plt Count 196 thou/uL (130-400) 08/28/18 21:31 Neutrophils % 45.4 % (42.0-75.0) 08/28/18 21:31 Sodium 136 mmol/L (136-145) 08/28/18 21:31 Potassium 3.7 mmol/L (3.5-5.1) 08/28/18 21:31 Chloride 100 mmol/L (98-107) 08/28/18 21:31 Carbon Dioxide 24 mmol/L (22-29) 08/28/18 21:31 BUN 8 mg/dL (8.9-20.6) L 08/28/18 21:31 Creatinine 0.89 mg/dL (0.7-1.3) 08/28/18 21:31 Glucose 103 mg/dL (70-105) 08/28/18 21:31 Calcium 8.9 mg/dL (7.8-10.44) 08/28/18 21:31 Total Bilirubin 0.5 mg/dL (0.2-1.2) 08/28/18 21:31 AST 35 U/L (5-34) H 08/28/18 21:31 ALT 16 U/L (8-55) 08/28/18 21:31 Alkaline Phosphatase 65 U/L (40-150) 08/28/18 21:31 Creatine Kinase 385 U/L (30-200) H 08/28/18 21:31 Serum Total Protein 8.2 g/dL (6.0-8.3) 08/28/18 21:31 Albumin 4.4 g/dL (3.5-5.0) 08/28/18 21:31 FMR H&P: A/P - Problem List (1) Snake bite Current Visit: Yes Status: Acute Code(s): W59.11XA - BITTEN BY NONVENOMOUS SNAKE, INITIAL ENCOUNTER (2) Alcohol abuse Current Visit: Yes Status: Acute Code(s): F10.10 - ALCOHOL ABUSE, UNCOMPLICATED (3) Alcohol intoxication Current Visit: Yes Status: Acute (4) Depression Current Visit: Yes Status: Acute Code(s): F32.9 - MAJOR DEPRESSIVE DISORDER , SINGLE EPISODE, UNSPECIFIED (5) Anxiety Current Visit: Yes Status: Acute Code(s): F41.9 - ANXIETY DISORDER, UNSPECIFIED (6) Tobacco abuse disorder Current Visit: No Status: Acute Code(s): Z72.0 - TOBACCO USE - Plan Minor Crotalid Bite -Patient presented with a reported Copperhead bite to his RLE. Puncture wound sites marked and erythema & swelling marked with marking pen as well with time denoted. No systemic symptoms or lab abnormalities noted. -Will therefore admit to medical floor for pain control & close monitoring overnight. Will trend coags, CBCs & CMPs per crofab protocol. - Will closely monitor wound site for spreading or erythema & edema & follow snakebite protocol. If wound worsens &/or edema spreads to/beyond knee, will consider initiating Crofab. -Tetanus-toxoid vaccine given in ER. EtOH Intoxication and Abuse -Blood EtOH level of 400 on presentation and patient notably intoxicated on exam. -Will start on IVFs and continue to monitor closely w/ ASE protocol. -UDS pending. Macrocytic anemia - Likely 2/2 chronic EtOh use. Needs outpatient workup. Bipolar disorder - Patient endorses a h/o depression and anxiety and reportedly has bipolar disorder per ERMD. However patient cannot recall any names of home meds and does not have them or a list with him. - Will review chart history to try to obtain home med list. Otherwise, may need to contact [facility] for up-to-date med list. Elevated BP w/o diagnosis of HTN - Patient denies any chronic medical issues other than psych conditions but had a slightly elevated BP on presentation. Could be only 2/2 pain but patient reports having suffered an AR and CVA before. Will continue to monitor closely and ensure patient has good primary care f/u upon discharge for routine HC maintenance. h/o AR - Aware, patient reports he had this in his 20s. Needs risk factor screening as an outpatient. h/o CVA - Also reported by patient. Needs good outpatient follow-up. FMR H&P: Upper Level - Pertinent history 47 yo CM with PMH of bipolar disorder with previous suicide attempts presents with complaint of a snake bite to his right ankle. Pt poor historian and under the influence of EtOH during questioning. 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 Pt stated it was clearly a Copperhead. Pt endorses pain and swelling to RLE and states he has been drinking EtOH. - Pertinent findings VSS Gen: NAD, clearly intoxicated CV: RRR Ext: RLE with clear puncture wounds above medial malleolus with erythema and edema demarcated with marker - Plan Date/Time: 08/29/18 0000 I, Siva Canales MD PGY3, have evaluated this patient and agree with findings/ plan as outlined by market research intern resident. Pertinent changes/additions are listed here. 1. Minor Crotalid Bite -Pt presents with reported Copperhead bite to RLE. No systemic symptoms or lab abnormalities with normal kidney function, LFTs, coagulation studies, and CK. -Will admit pt to medical floor for IVF and pain control. -Observe with local wound care and follow snakebite protocol. If wound worsens, consider initiating Crofab. -Pt is NOT up to date with Tetanus, ERMD stated tetanus-toxoid vaccine to be given in ER. 2. EtOH Intoxication and Abuse -IVF and monitor. -Pt has a hx of EtOH abuse and will be started on Librium. -Continue to monitor ASE/CIWA scores. -Obtain UDS. disposition: Admit to medical observation for anticipated length of stay less than two midnights, pending clinical course. Addendum - Attending - Attending Attestation Date/Time: 08/29/18 4467 I personally evaluated the patient and discussed the management with Dr. James/ Parker. I agree with the History, Examination, Assessment and Plan documented above with any addition or exceptions noted below. Patient here for EtOH intoxication which likely had something to do with his snakebite. He complains of pain, but his edema/erythema is stable and not progressing. Labs are also stable. Will monitor through the afternoon and check pain control. If ambulating and labs/swelling stable, he can likely be discharged to home later this afternoon.
[2018-08-29 00:23] LABS: Bilirubin Negative (Negative); Blood, Urine Negative (Negative); Clarity CLEAR (Clear); Glucose, Urine (Dipstick) Negative (Negative); Leukocyte Negative (Negative); Nitrite Negative (Negative); Protein, Urine (Dipstick) Negative (Neg-Trace); Specific Gravity, Urine 1.006 (1.002-1.036); Urobilinogen 0.2 mg/dL (0.2-1.0); pH, Urine 6.5 (5.0-9.0)
[2018-08-29 01:01] LABS: Amphetamine Not Detected (NotDetected); Barbiturates Screen Not Detected (NotDetected); Benzodiazepine Screen Not Detected (NotDetected); Cocaine Metabolite Screen Not Detected (NotDetected); Medtox Control Line Valid? VALID (VALID); Medtox Reader # READER 4; Methadone Not Detected (NotDetected); Methamphetamine Not Detected (NotDetected); Opiate Screen Detected (NotDetected); Oxycodone Screen Not Detected (NotDetected); Phencyclidine (PCP) Not Detected (NotDetected); THC/Cannabinoid Screen Not Detected (NotDetected); Tricyclic Screen Not Detected (NotDetected)
[2018-08-29] MEDS ORDERED: Morphine 2 MG/ML SYRINGE SLOW IVP PRN (01:05)
[2018-08-29] MEDS ORDERED: Ondansetron PF 4 MG/2 ML Vial IVP PRN (01:06)
[2018-08-29] MEDS ORDERED: Ondansetron ODT 4 MG TAB SL PRN (01:06)
[2018-08-29 01:21] VITALS: BMI 21.9
[2018-08-29] MEDS ORDERED: Lorazepam 2 MG/ML VIAL SLOW IVP PRN (01:31)
[2018-08-29] MEDS: Ketorolac Tromethamine 30 MG/ML VIAL IVP PRN ×2 (03:54→11:59)
[2018-08-29 05:52] LABS: #Eosinphils 0.2 thou/uL (0.0-0.7); #Lymphocytes 2.7 thou/uL (1.20-3.40); #Monocytes 0.6 thou/uL (0.11-0.59); %Basophils 0.4 % (0.0-1.0); %Eosinophils 3.2 % (0.0-10.0); %Lymphocytes 41.2 % (21.0-51.0); %Monocytes 8.7 % (0.0-10.0); %Neutrophils 46.5 % (42.0-75.0); Mean Corpuscular HGB CONC 33.6 g/dL (32.0-36.0); Mean Platelet Volume 6.7 fL (7.4-10.4); Platelet Count 168 thou/uL (130-400); RBC Distribution Width 12.5 % (11.5-14.5); Red Blood Cell (RBC) Count 3.43 mill/uL (4.70-6.10); White Blood Cell (WBC) Count 6.5 thou/uL (4.8-10.8)
[2018-08-29 06:01] LABS: INR-International Normal Ratio 0.9; PTT 30.4 SEC (22.9-36.1)
[2018-08-29 06:13] LABS: ALT (SGPT) 14 U/L (8-55); AST (SGOT) 31 U/L (5-34); Albumin 4.1 g/dL (3.5-5.0); Alkaline Phosphatase 63 U/L (40-150); Anion Gap 17 mmol/L (10-20); BUN (Urea Nitrogen) 6 mg/dL (8.9-20.6); Bilirubin, Total 0.6 mg/dL (0.2-1.2); Calc. Creatinine Clearance 107 mL/min (70-130); Calcium 8.4 mg/dL (7.8-10.44); Carbon Dioxide 23 mmol/L (22-29); Chloride 103 mmol/L (98-107); Estimated GFR-MDRD Greater than 90; Globulin 3.2 g/dL (2.4-3.5); Glucose 135 mg/dL (70-105); Potassium 3.8 mmol/L (3.5-5.1); Protein, Total 7.3 g/dL (6.0-8.3); Sodium 139 mmol/L (136-145)
[2018-08-29] MEDS: Lactated Ringer's 1,000 ML IV SCH ×2 (08:34→17:39)
[2018-08-29 09:00] LABS: INR-International Normal Ratio 0.9; Prothrombin Time 12.6 SEC (12.0-14.7)
[2018-08-29 09:16] LABS: ALT (SGPT) 14 U/L (8-55); AST (SGOT) 30 U/L (5-34); Albumin 3.8 g/dL (3.5-5.0); Alkaline Phosphatase 58 U/L (40-150); Anion Gap 15 mmol/L (10-20); BUN (Urea Nitrogen) 5 mg/dL (8.9-20.6); Bilirubin, Total 0.8 mg/dL (0.2-1.2); Calc. Creatinine Clearance 118 mL/min (70-130); Calcium 8.3 mg/dL (7.8-10.44); Carbon Dioxide 23 mmol/L (22-29); Chloride 104 mmol/L (98-107); Estimated GFR-MDRD Greater than 90; Globulin 3.2 g/dL (2.4-3.5); Glucose 92 mg/dL (70-105); Potassium 3.9 mmol/L (3.5-5.1); Sodium 138 mmol/L (136-145)
[2018-08-29 10:54] LABS: #Eosinphils 0.2 thou/uL (0.0-0.7); #Lymphocytes 1.4 thou/uL (1.20-3.40); #Monocytes 0.6 thou/uL (0.11-0.59); #Neutrophils 4.2 thou/uL (1.40-6.50); %Basophils 0.4 % (0.0-1.0); %Eosinophils 3.8 % (0.0-10.0); %Lymphocytes 22.2 % (21.0-51.0); %Monocytes 8.9 % (0.0-10.0); %Neutrophils 64.7 % (42.0-75.0); Hemoglobin 11.9 g/dL (14.0-18.0); MDiff Complete? YES; Macrocytosis SLIGHT = 6-15 cells (100X) (0-5/hpf); Mean Corpuscular HGB CONC 33.6 g/dL (32.0-36.0); Mean Corpuscular Hemoglobin 35.2 pg (27.0-31.0); Mean Platelet Volume 6.8 fL (7.4-10.4); Platelet Count 161 thou/uL (130-400); RBC Distribution Width 12.4 % (11.5-14.5); Red Blood Cell (RBC) Count 3.38 mill/uL (4.70-6.10); White Blood Cell (WBC) Count 6.5 thou/uL (4.8-10.8)
[2018-08-29 15:36] LABS: #Eosinphils 0.1 thou/uL (0.0-0.7); #Lymphocytes 1.2 thou/uL (1.20-3.40); #Monocytes 0.7 thou/uL (0.11-0.59); %Basophils 0.6 % (0.0-1.0); %Eosinophils 1.3 % (0.0-10.0); %Lymphocytes 14.8 % (21.0-51.0); %Monocytes 8.2 % (0.0-10.0); %Neutrophils 75.1 % (42.0-75.0); Hemoglobin 12.4 g/dL (14.0-18.0); Mean Corpuscular Hemoglobin 35.2 pg (27.0-31.0); Mean Platelet Volume 6.6 fL (7.4-10.4); Platelet Count 158 thou/uL (130-400); RBC Distribution Width 12.3 % (11.5-14.5); Red Blood Cell (RBC) Count 3.54 mill/uL (4.70-6.10)
[2018-08-29 15:43] LABS: INR-International Normal Ratio 0.9; PTT 28.9 SEC (22.9-36.1); Prothrombin Time 12.3 SEC (12.0-14.7)
[2018-08-29] MEDS: traMADol HCl 50 MG TAB PO PRN ×2 (15:44→20:05)
[2018-08-29 15:54] LABS: Chloride 104 mmol/L (98-107); Potassium 3.9 mmol/L (3.5-5.1); Sodium 136 mmol/L (136-145)
[2018-08-29 16:05] LABS: ALT (SGPT) 16 U/L (8-55); AST (SGOT) 31 U/L (5-34); Albumin 3.9 g/dL (3.5-5.0); Alkaline Phosphatase 63 U/L (40-150); BUN (Urea Nitrogen) 7 mg/dL (8.9-20.6); Bilirubin, Total 0.9 mg/dL (0.2-1.2); Calc. Creatinine Clearance 115 mL/min (70-130); Carbon Dioxide 22 mmol/L (22-29); Estimated GFR-MDRD Greater than 90; Globulin 3.3 g/dL (2.4-3.5); Glucose 96 mg/dL (70-105); Protein, Total 7.2 g/dL (6.0-8.3)
[2018-08-29 16:29] LABS: Anion Gap 14 mmol/L (10-20)
[2018-08-29] MEDS ORDERED: Lorazepam 2 MG/ML VIAL SLOW IVP SCH (16:45)
[2018-08-29] MEDS ORDERED: Diazepam 5 MG TAB PO SCH (16:45)
[2018-08-29] MEDS: Ketorolac Tromethamine 30 MG/ML VIAL IVP SCH ×2 (17:52→23:28)
[2018-08-30] MEDS: traMADol HCl 50 MG TAB PO PRN ×2 (03:22→08:21)
[2018-08-30] MEDS: Ketorolac Tromethamine 30 MG/ML VIAL IVP SCH (05:10)
--- NOTE | 2018-08-30 08:52 | PDOC.FM ---
- Subjective Subjective: Patient reports that the valium helped his tremors significantly. He claims he is going to try to stop drinking. He reports significant pain in his R foot that makes it difficult to walk or bear full weight. He is tolerating PO well. - Objective MAR Reviewed: Yes Vital Signs & Weight: Vital Signs (12 hours) Temp Pulse Resp BP BP Pulse Ox 08/30/18 08:00 98.1 F 53 L 16 133/79 96 08/30/18 07:18 133/79 08/30/18 07:15 98.1 F 53 L 16 133/79 96 08/30/18 03:14 98.6 F 50 L 18 137/67 96 08/29/18 23:11 98.9 F 60 12 130/76 95 Weight Weight 71.214 kg I&O: 08/29/18 08/30/18 08/31/18 06:59 06:59 06:59 Intake Total 1172 2850 Output Total 475 1050 Balance 697 1800 Result Diagrams: 08/29/18 15:18 08/29/18 15:18 Phys Exam - Physical Examination Constitutional: NAD HEENT: moist MMs, sclera anicteric Respiratory: no wheezing, no rales, no rhonchi, clear to auscultation bilateral Cardiovascular: RRR, no significant murmur, no rub Gastrointestinal: soft, non-tender, no distention, positive bowel sounds Musculoskeletal: pulses present, edema present (RLE edema) Neurological: non-focal, moves all 4 limbs tremor in bilateral upper extremities Psychiatric: normal affect, A&O x 3 Deviation from normal: bruising and erythema over RLE within marking margins Dx/Plan (1) Snake bite Code(s): W59.11XA - BITTEN BY NONVENOMOUS SNAKE, INITIAL ENCOUNTER Status: Acute (2) Alcohol abuse Code(s): F10.10 - ALCOHOL ABUSE, UNCOMPLICATED Status: Acute (3) Alcohol intoxication Status: Acute (4) Anxiety Code(s): F41.9 - ANXIETY DISORDER, UNSPECIFIED Status: Acute (5) Depression Code(s): F32.9 - MAJOR DEPRESSIVE DISORDER, SINGLE EPISODE, UNSPECIFIED Status : Acute (6) Bipolar disorder Code(s): F31.9 - BIPOLAR DISORDER, UNSPECIFIED Status: Acute - Plan Plan: Minor Crotalid Bite Patient presented with a reported Copperhead bite to his RLE. Puncture wound sites marked and erythema & swelling marked with marking pen as well with time denoted. No systemic symptoms or lab abnormalities noted. Labs and coags WNL all day yesterday. No recommendation for crofab at this time. Tetanus-toxoid vaccine given in ER. -Will d/c home today with tramadol for pain -Will give script for crutches EtOH Intoxication and Abuse Blood EtOH level of 400 on presentation and patient notably intoxicated on exam. UDS negative. Patient no longer intoxicated, but developed DT's. Gave 10mg PO valium last night and his symptoms improved. He has had ASE scores of 4-6 in past 12 hours. -stable for d/c Macrocytic anemia Likely 2/2 chronic EtOh use. -Needs outpatient workup. Bipolar disorder Patient endorses a h/o depression and anxiety and reportedly has bipolar disorder per ERMD. However patient cannot recall any names of home meds and does not have them or a list with him. - Unable to obtain home meds, will have pt resume once home. h/o DC - Aware, patient reports he had this in his 20s. Needs risk factor screening as an outpatient. h/o CVA - Also reported by patient. Needs good outpatient follow-up. Dispo: d/c home today Addendum - Attending - Attending Attestation Date/Time: 08/30/18 8549 I personally evaluated the patient and discussed the management with Dr. Deshpande. I agree with the History, Examination, Assessment and Plan documented above with any addition or exceptions noted below. Patient doing well and pain controlled. No spread of erythema or edema from snakebite and labs have remained wnl. Withdrawal symptoms improved with diazepam. He is stable for discharge with PO pain control.
[2018-08-30 11:12] VITALS: BP 134/84; TEMP 98
--- NOTE | 2018-08-30 21:34 | DIS ---
DATE OF ADMISSION: 08/29/2018 DATE OF DISCHARGE: 08/30/2018 ADMITTING ATTENDING: Tadeo Cho MD. DISCHARGE ATTENDING: Tadeo Cho MD. ADMITTING RESIDENT: Dr. Giana James. DISCHARGE RESIDENT: Lluvia Deshpande MD. CONSULTS: None. PROCEDURES: None. PRIMARY DIAGNOSES: 1. Minor Crotalid bite. 2. Alcohol intoxication. 3. Alcohol withdrawal SECONDARY DIAGNOSES: 1. Alcohol abuse. 2. Macrocytic anemia. 3. Bipolar disorder. 4. History of myocardial infarction. 5. History of cerebrovascular accident. DISCHARGE MEDICATIONS: 1. Naproxen 220 mg p.o. b.i.d. 2. Tramadol 50 mg p.o. q.4 hours p.r.n., dispense #10. 3. Cyclobenzaprine 10 mg p.o. t.i.d. 4. Fluoxetine 20 mg p.o. daily. 5. Olanzapine 5 mg p.o. at bedtime. DISCONTINUED MEDICATIONS: None. HISTORY OF PRESENT ILLNESS/HOSPITAL COURSE: This is a 47-year-old male with past history of alcohol abuse and bipolar disorder, who presented to the ER after reportedly getting bit by a copperhead snake. The patient reported significant pain in his right lower extremity and swelling and erythema. The patient was found to have 2 puncture wounds on his right medial lower extremity with erythema that extended down to the ankle and bruising in the ankle, foot and mid kahn. This was marked and as it did not cross more than one joint line, the patient did not receive CroFab. The patient was found to be intoxicated with alcohol with a blood alcohol level of 402. The patient was given fluids and this downtrended to 137 and then negative. Around that time, the patient started developing tremors and was given 10 mg p.o. Valium. This helped with the symptoms. The patient was able to put some weight on his leg, but had some difficulty ambulating due to the pain. The patient was given tramadol and Toradol in the hospital. He was discharged with tramadol and naproxen. The patient was also given a prescription for crutches if needed. The patient was counseled on alcohol cessation, however, did not seem interested in stopping at this time. The patient had normal lab work throughout his stay, including normal coags. DISPOSITION: Stable. DISCHARGE INSTRUCTIONS: 1. Location: Home. 2. Diet: Regular. 3. Activity: As tolerated. 4. Follow up with PCP within 7 days. Job ID: [id number] MTDD
--- NOTE | 2018-09-10 14:08 | EKG ---
Test Reason : Blood Pressure : / mmHG Vent. Rate : 074 BPM Atrial Rate : 074 BPM P-R Int : 136 ms QRS Dur : 102 ms QT Int : 398 ms P-R-T Axes : 060 062 064 degrees QTc Int : 441 ms Normal sinus rhythm Minimal voltage criteria for LVH, may be normal variant Borderline ECG Confirmed by SALVATORE AMES ([id number]), assistant editor OVIDIO UNGER ([id number]) on 09/10/2018 2:08:04 PM Referred By: Confirmed By:SALVATORE AMES
== END 2018-08-30 11:33 | disposition home or self-care (01) ==
LOC: ERS 21:14 → 2SW 08-29 00:05 → ERHOLD 08-29 05:42 → 2SW 08-29 05:44
PROVIDERS: ADMIT Hospitalist; ATTEND Hospitalist
DX: T63.061A Toxic effect of venom of other North and South American snake, accidental (unintentional), initial encounter (principal); M79.661 Pain in right lower leg; R07.9 Chest pain, unspecified; R06.02 Shortness of breath; R20.0 Anesthesia of skin; R03.0 Elevated blood-pressure reading, without diagnosis of hypertension; F41.9 Anxiety disorder, unspecified; F32.9 Major depressive disorder, single episode, unspecified; D53.9 Nutritional anemia, unspecified; F17.210 Nicotine dependence, cigarettes, uncomplicated; I25.2 Old myocardial infarction; Z86.73 Personal history of transient ischemic attack (TIA), and cerebral infarction without residual deficits
CPT/HCPCS: 36415; 80053; 80306; 80307; 81003; 82550; 85025; 85384; 85610; 85730; 90471; 90715; 93005; 96361; 96365; 96366; 96375; 96376; G0378; J1885; J2270; J3411; J7042

== ENCOUNTER 2018-08-31 21:07 | Inpatient (IN) | payer SELFPAY ==
[2018-08-31 21:32] LABS: #Basophils 0.1 thou/uL (0.0-0.2); #Eosinphils 0.4 thou/uL (0.0-0.7); #Lymphocytes 1.7 thou/uL (1.20-3.40); #Monocytes 0.8 thou/uL (0.11-0.59); #Neutrophils 2.8 thou/uL (1.40-6.50); %Basophils 1.1 % (0.0-1.0); %Eosinophils 7.6 % (0.0-10.0); %Lymphocytes 29.7 % (21.0-51.0); %Monocytes 13.1 % (0.0-10.0); %Neutrophils 48.5 % (42.0-75.0); Hemoglobin 11.5 g/dL (14.0-18.0); Mean Corpuscular HGB CONC 34.4 g/dL (32.0-36.0); Mean Corpuscular Hemoglobin 35.8 pg (27.0-31.0); Mean Platelet Volume 6.9 fL (7.4-10.4); Platelet Count 122 thou/uL (130-400); RBC Distribution Width 12.2 % (11.5-14.5); White Blood Cell (WBC) Count 5.8 thou/uL (4.8-10.8)
[2018-08-31 21:39] LABS: INR-International Normal Ratio 0.9; PTT 28.4 SEC (22.9-36.1)
[2018-08-31] MEDS ORDERED: Crotalidae Polyvlnt Antivenin 4 GM in Sodium Chloride 0.9% 250 ML 250 ML IVPB SCH (21:45)
[2018-08-31 21:53] LABS: ALT (SGPT) 11 U/L (8-55); AST (SGOT) 22 U/L (5-34); Alcohol 300 mg/dL (Less than 10); Alkaline Phosphatase 63 U/L (40-150); Anion Gap 16 mmol/L (10-20); BUN (Urea Nitrogen) 8 mg/dL (8.9-20.6); Bilirubin, Total 0.2 mg/dL (0.2-1.2); CK (CPK) 170 U/L (30-200); Calc. Creatinine Clearance 0 mL/min (70-130); Calcium 8.9 mg/dL (7.8-10.44); Carbon Dioxide 22 mmol/L (22-29); Chloride 103 mmol/L (98-107); Estimated GFR-MDRD 88; Globulin 3.4 g/dL (2.4-3.5); Glucose 95 mg/dL (70-105); Potassium 3.6 mmol/L (3.5-5.1); Protein, Total 7.4 g/dL (6.0-8.3); Sodium 137 mmol/L (136-145)
[2018-08-31] MEDS ORDERED: Acetaminophen 500 MG TAB ONE (21:57)
--- NOTE | 2018-08-31 22:00 | PDOC.FPRHP ---
- History of Present Illness Chief Complaint: Snake bite History of Present Illness: This is a 47 yo male with a pmh of Bipolar disorder and alcohol abuse who presents to the ED after bein bitten in the right lower leg and left middle finger. He states he was sitting by his tent tonight when a snake bite his right posterior lower leg. He reports reaching down to remove the snake when he was bitten in his right middle finger. He reports pain spreading up his left arm to the point of his mid shoulder. He also reports pain spreading up his right leg to the point of his knee. He reports nausea but denies chest pain, SOB , vomiting, or weakness. ED Course: Cryofab x4 vials Banana bag Tylenol NS 1L - Allergies/Adverse Reactions Allergies Allergy/AdvReac Type Severity Reaction Status Date / Time No Known Drug Allergies Allergy Verified 08/29/18 01:33 - Home Medications Medication Instructions Recorded Confirmed Type Cyclobenzaprine [Flexeril] 10 mg PO TID PRN 08/30/18 09/01/18 History FLUoxetine HCl [Prozac] 20 mg PO DAILY 08/30/18 09/01/18 History Naproxen Sodium [Aleve] 220 mg PO BID #14 capsule 08/30/18 09/01/18 Rx OLANZapine [Zyprexa] 5 mg PO HS 08/30/18 09/01/18 History Acetaminophen [Tylenol Regular 650 mg PO Q4H PRN tab 09/01/18 Rx Strength] traMADol HCl [Ultram] 50 mg PO Q6H PRN tab 09/01/18 Rx - History PMHx: Bipolar, alcohol abuse, [place], CVA PSHx: none FHx: multiple 1st degree relatives with MIs Social: 2-3 32oz beers per day, .5 pack smoking - Review of Systems General: denies: fever/chills, weight/appetite/sleep changes, night sweats, fatigue Eyes: denies: eye pain, vision changes ENT: denies: nasal congestion, rhinorrhea Respiratory: denies: cough, shortness of breath Cardiovascular: reports: chest pain. denies: palpitation, edema, paroxysmal nocturnal dyspnea Gastrointestinal: reports: nausea. denies: vomiting, diarrhea, constipation, abdominal pain Skin: denies: rashes, lesions Musculoskeletal: denies: pain, tenderness Neurological: denies: numbness, syncope Psychological: denies: anxiety, depression - Vital signs BP: 121/76 HR: 81 RR: 20 Tmax: 97.5 Pox: 93% on ra Wt: 70 kg - Physical Exam Constitutional: NAD, awake, alert and oriented, well developed, other (Breath smells of alcohol) HEENT: normocephalic and atraumatic, PERRLA, EOMI, conjunctiva clear, grossly normal vision, grossly normal hearing, other (dry mucus membranes) Neck: FROM, trachea midline Chest: other (Tender to palpation on right side near shoulder) Heart: RRR, normal S1/S2, no murmurs/rubs/gallops, pulses present Lungs: CTAB, no respiratory distress, no wheezing Abdomen: soft, non-tender, bowel sounds present -Musculoskeletal: Pt has mild swelling on right lower extremity with extreme tenderness to palpation and movement of foot, ankle, and lower leg. Pt has tenderness of left hand to mid arm. Mild swelling of third digit with minimal erythema. Pulses present distal to RLE bite, pt did not tolerate checking cap refill on left third digit Neurological: CN II-XII intact Skin: good turgor FMR H&P: Results - Labs Result Diagrams: 09/01/18 05:42 09/01/18 05:42 Lab results: WBC 5.8 thou/uL (4.8-10.8) 08/31/18 21:25 Hgb 11.5 g/dL (14.0-18.0) L 08/31/18 21:25 Hct 33.3 % (42.0-52.0) L 08/31/18 21:25 MCV 104.0 fL (78.0-98.0) H 08/31/18 21:25 Plt Count 122 thou/uL (130-400) L 08/31/18 21:25 Neutrophils % 48.5 % (42.0-75.0) 08/31/18 21:25 FMR H&P: A/P - Problem List (1) Alcohol abuse Status: Acute Code(s): F10.10 - ALCOHOL ABUSE, UNCOMPLICATED (2) Alcohol intoxication Status: Acute (3) Anxiety Status: Acute Code(s): F41.9 - ANXIETY DISORDER, UNSPECIFIED (4) Bipolar disorder Status: Acute Code(s): F31.9 - BIPOLAR DISORDER, UNSPECIFIED (5) Snake bite Status: Acute Code(s): W59.11XA - BITTEN BY NONVENOMOUS SNAKE, INITIAL ENCOUNTER (6) Tobacco abuse disorder Status: Acute Code(s): Z72.0 - TOBACCO USE - Plan This is a 47 yo male with a pmh of bipolar and alcoholism Reported Copperhead bite to his RLE and left middle finger -Admit to medical -Both bite dolan circled, will monitor -Trend Coags, CMP, CBC -Pending CK -Continue cryofab protocol, s/p 4 vials of antivenom Alcohol intoxication/abuse -ASE protocol in place -Replacing folate and thiamine Macrocytic anemia -Beginning work up with RBC folate and thiamine Bipolar -Continue home meds Code: full Prophylaxis: none Family: none at bedside Disposition: DC in1-2 days after observation PCP: GINA, paramunce back FMR H&P: Upper Level - Plan Date/Time: 08/31/182151 I B. Brendan Pineda MD, have evaluated this patient and agree with findings/plan as outlined by dental internship resident. Pertinent changes/additions are listed here. 47 y/o M w/ recent hospitalization and discharge on 08/30 for a snake bite presents to the ER for another snake bite which occurred earlier tonight. Reports a Copperhead bit him on his R-calf and he tried to pull the snake off with his left hand and it bit his left middle finger. Reports pain in R-LE distal to bite and in L-middle finger w/ pain radiating into the mid upper bicep area. Also reports some dry mouth and nausea. Pt was started on crofrab protocol in the ER and erythema marked. Vitals per dental internship note Hgb 11.5 MCV - 104 EtOH 300 CK 170 PT 12 PTT 28.4 INR 0.9 PE: Swelling and redness noted L-middle finger distal to DIP joint. No overt tracking of erythema noted. Also w/ puncture wound noted on postero-medial aspect of R-calf w/o surrounding erythema. Boths sites TTP. Sensation intact. 47 y/o M w/: 1. Crotalid Envenomation - Labs grossly WNL and patient in no acute cardiopulmonary distress - Reportedly w/ some streaking in the ER prompting initiation of crop setting out machine operator-renetta therapy , but this appears to have resolved by time of our evaluation - Will continue w/ Manager [employer]-Renetta snake bite protocol started in the ER w/ repeat CBC, CMP, Coags, and fibrinogen at 6 hours - Pt received tetanus vaccination at admission yesterday - Bite sites marked and will monitor for progression 2. Alcohol intoxication - Blood alcohol level 300, was in the 400s last admission - Will place on ASE protocol and monitor for signs of withdrawal 3. Macrocytic Anemia - Stable from prior hospitalizations - Will check a B12 and Folate in the setting of #2 Addendum - Attending - Attending Attestation Date/Time: 09/01/181926 I personally evaluated the patient and discussed the management with Dr. Arce at time of admission. See separate note. I agree with the History, Examination, Assessment and Plan documented above with any addition or exceptions noted below.
[2018-08-31] MEDS ORDERED: Multivitamins, Adult 10 ML, Thiamine HCl 100 MG, Folic Acid 1 MG in Dextrose 5 %-0.45 %... IV SCH (22:15)
[2018-08-31] MEDS ORDERED: Sodium Chloride 0.9% 1,000 ML IV SCH (22:50)
[2018-08-31] MEDS ORDERED: Ondansetron PF 4 MG/2 ML Vial IVP PRN (22:50)
[2018-08-31] MEDS ORDERED: Ondansetron ODT 4 MG TAB SL PRN (22:50)
[2018-08-31] MEDS ORDERED: traMADol HCl 50 MG TAB PO PRN (22:58)
[2018-08-31] MEDS ORDERED: Acetaminophen 650 MG Suppository PR PRN (22:58)
[2018-08-31] MEDS ORDERED: Acetaminophen 325 MG TAB PO PRN (22:58)
[2018-08-31 23:15] VITALS: BMI 20.5
[2018-08-31] MEDS: Sodium Chloride 0.9% 1,000 ML IV SCH (23:48)
--- NOTE | 2018-09-01 00:03 | PDOC.EVN ---
Event Note - Event Note Event Note: Date/Time: 09/01/18 0000 I personally evaluated the patient and discussed the management with Dr. Arce prior to midnight on 08/31/18. H&P is pending. I agree with the History, Examination, Assessment and Plan as discussed. Following Crofab protocol. Currently is feeling less pain in left arm and right leg. Serial labs ordered. Anemia workup in progress. ASE protocol arranged. THiamine and folate ordered.
[2018-09-01 06:11] LABS: INR-International Normal Ratio 0.9; PTT 28.1 SEC (22.9-36.1); Prothrombin Time 12.1 SEC (12.0-14.7)
[2018-09-01 06:21] LABS: #Eosinphils 0.3 thou/uL (0.0-0.7); #Lymphocytes 1.2 thou/uL (1.20-3.40); #Monocytes 0.5 thou/uL (0.11-0.59); #Neutrophils 1.6 thou/uL (1.40-6.50); %Eosinophils 8.9 % (0.0-10.0); %Lymphocytes 33.4 % (21.0-51.0); %Monocytes 14.7 % (0.0-10.0); Mean Corpuscular Hemoglobin 35.8 pg (27.0-31.0); Platelet Count 115 thou/uL (130-400); RBC Distribution Width 12.3 % (11.5-14.5); Red Blood Cell (RBC) Count 3.08 mill/uL (4.70-6.10); White Blood Cell (WBC) Count 3.7 thou/uL (4.8-10.8)
[2018-09-01 06:37] LABS: ALT (SGPT) 8 U/L (8-55); AST (SGOT) 18 U/L (5-34); Albumin 3.5 g/dL (3.5-5.0); Alkaline Phosphatase 54 U/L (40-150); Anion Gap 11 mmol/L (10-20); BUN (Urea Nitrogen) 7 mg/dL (8.9-20.6); Bilirubin, Total 0.2 mg/dL (0.2-1.2); CK (CPK) 115 U/L (30-200); Calc. Creatinine Clearance 111 mL/min (70-130); Calcium 8.5 mg/dL (7.8-10.44); Carbon Dioxide 25 mmol/L (22-29); Chloride 109 mmol/L (98-107); Estimated GFR-MDRD Greater than 90; Globulin 3.1 g/dL (2.4-3.5); Glucose 101 mg/dL (70-105); Potassium 3.5 mmol/L (3.5-5.1); Protein, Total 6.6 g/dL (6.0-8.3); Sodium 141 mmol/L (136-145)
--- NOTE | 2018-09-01 06:51 | PDOC.FM ---
- Subjective Subjective: Pt reports feeling good this morning, reports continued pain in L finger and R leg but no fever/chills, no cp no sob. no other complaints - Objective Vital Signs & Weight: Vital Signs (12 hours) Temp Pulse Resp BP Pulse Ox 09/01/18 04:00 97.8 F 69 16 104/62 93 L 09/01/18 00:00 97.9 F 94 16 146/71 H 94 L 08/31/18 22:50 97.5 F L 81 20 121/76 93 L Weight Weight 70.7 kg I&O: 08/30/18 08/31/18 09/01/18 06:59 06:59 06:59 Intake Total 2000 Output Total 1000 Balance 1000 Result Diagrams: 09/01/18 05:42 09/01/18 05:42 Phys Exam - Physical Examination Constitutional: NAD HEENT: sclera anicteric, TM's clear Neck: no JVD, supple Respiratory: no wheezing, clear to auscultation bilateral Cardiovascular: RRR, no significant murmur Gastrointestinal: soft, non-tender Musculoskeletal: no edema Neurological: non-focal, normal sensation Psychiatric: normal affect, A&O x 3 Deviation from normal: erythema at L middle finger and RLE, erythema retreated within the borders. Dx/Plan (1) Alcohol abuse Code(s): F10.10 - ALCOHOL ABUSE, UNCOMPLICATED Status: Acute (2) Alcohol intoxication Status: Acute (3) Bipolar disorder Code(s): F31.9 - BIPOLAR DISORDER, UNSPECIFIED Status: Acute (4) Snake bite Code(s): W59.11XA - BITTEN BY NONVENOMOUS SNAKE, INITIAL ENCOUNTER Status: Acute - Plan Plan: Snakebite A- improved, possibly copperhead, stable Coags, CMP, CBC P- PO hydration, possible DC if pt continues in stability Alcohol intoxication/abuse A- ASE protocol in place. EtOH in 300s in ED P- Replacing folate and thiamine Macrocytic anemia A- likely 2/2 alcohol miss-use P- replace B12 and folate Bipolar -Continue home meds Code: full Addendum - Attending - Attending Attestation Date/Time: 09/01/18 1126 I personally evaluated the patient and discussed the management with Dr. Belcher. I agree with the History, Examination, Assessment and Plan documented above with any addition or exceptions noted below. Patient here after repeat snakebite on R calf and L hand. He is feeling well this morning. Has pain in his L finger but swelling and erythema have not spread , in fact have improved some. No swelling or redness identified on her R calf. His coags and other labs are stable. He is stable for discharge. Counselled on importance of alcohol cessation and avoid snakes as this is his 2 encounter with healthcare team due to snakebites in the last few days.
[2018-09-01] MEDS: Sodium Chloride 0.9% 1,000 ML IV SCH (08:03)
[2018-09-01 08:18] VITALS: TEMP 97.9
[2018-09-01 10:33] LABS: Folate (Folic Acid) 34.1 ng/mL (7.0-31.4)
[2018-09-01 12:58] VITALS: BP 123/76
[2018-09-02 12:12] LABS: Folate,Hemolysate 290.3 ng/mL (Not Estab.); RBC Folate Test Component 968 ng/mL (>498)
--- NOTE | 2018-09-02 13:19 | DIS ---
DATE OF ADMISSION: 08/31/2018 DATE OF DISCHARGE: 09/01/2018 RESIDENT: Xavier Belcher MD ADMITTING ATTENDING: Lev Collins MD DISCHARGE ATTENDING: Tadeo Cho MD CONSULTS: None. PROCEDURES: None. PRIMARY DIAGNOSIS: Snake bite. SECONDARY DIAGNOSES: Alcohol intoxication, alcohol misuse, macrocytic anemia, bipolar disease. DISCHARGE MEDICATIONS: 1. Fluoxetine 20 mg p.o. daily. 2. Olanzapine 5 mg p.o. at bedtime. 3. Flexeril 10 mg p.o. t.i.d. p.r.n., resumed at home. 4. Naproxen 20 mg p.o. b.i.d. 5. p.o. q.4 hours p.r.n. 6. Tramadol resumed at home 50 mg p.o. q.6 hours p.r.n. DISCONTINUED MEDICATIONS: None. HISTORY OF PRESENT ILLNESS/HOSPITAL COURSE: This is a 47-year-old male, who presented to the hospital for snake bite. This is the second time this patient was bitten by a snake this week. The patient had recently been discharged from the hospital from snake bite when he returned to his tent in the [facility]. He reportedly got intoxicated with alcohol and got bitten by a snake again in the right lower extremity and left hand. On this admission, the patient had swelling in the left middle finger which crossed distal joint line and so received doses of CroFab. The patient's swelling and erythema was stable following this. Lab work including coagulation panel and fibrinogen were within normal limits. The patient was deemed stable for discharge. DISPOSITION: Stable. DISCHARGE INSTRUCTIONS: 1. Location: Home. 2. Activity: As tolerated. 3. Diet: No restrictions. 4. Followup: Follow up with primary care provider in 7 days. Job ID: [id number]
== END 2018-09-01 15:57 | disposition home or self-care (01) | DRG 918 ==
LOC: ERS 21:07 → SURG A 22:55
PROVIDERS: ADMIT Family Medicine; ATTEND Family Medicine
PROC: HZ2ZZZZ Detoxification Services for Substance Abuse Treatment (ICD-10-PCS; principal; 2018-08-31)
DX: T63.091A Toxic effect of venom of other snake, accidental (unintentional), initial encounter (principal); I10 Essential (primary) hypertension; F31.9 Bipolar disorder, unspecified; F17.210 Nicotine dependence, cigarettes, uncomplicated; F41.9 Anxiety disorder, unspecified; D53.9 Nutritional anemia, unspecified; F10.129 Alcohol abuse with intoxication, unspecified; I25.2 Old myocardial infarction; Z86.73 Personal history of transient ischemic attack (TIA), and cerebral infarction without residual deficits; Z71.41 Alcohol abuse counseling and surveillance of alcoholic; Y90.8 Blood alcohol level of 240 mg/100 ml or more
CPT/HCPCS: 36415; 80053; 80307; 82550; 82607; 82746; 82747; 85025; 85384; 85610; 85730; 96361; 96365; J0840; J3411; J7042; J7050

== ENCOUNTER 2018-09-05 23:38 | Emergency (ER) | payer SELFPAY ==
[2018-09-06 00:15] LABS: #Basophils 0.1 thou/uL (0.0-0.2); #Eosinphils 0.2 thou/uL (0.0-0.7); #Lymphocytes 2.4 thou/uL (1.20-3.40); #Monocytes 0.5 thou/uL (0.11-0.59); #Neutrophils 2.3 thou/uL (1.40-6.50); %Eosinophils 3.5 % (0.0-10.0); %Monocytes 9.6 % (0.0-10.0); %Neutrophils 41.9 % (42.0-75.0); Hemoglobin 13.3 g/dL (14.0-18.0); Mean Corpuscular HGB CONC 34.6 g/dL (32.0-36.0); Mean Corpuscular Hemoglobin 35.7 pg (27.0-31.0); Mean Platelet Volume 6.3 fL (7.4-10.4); Platelet Count 154 thou/uL (130-400); RBC Distribution Width 12.7 % (11.5-14.5); Red Blood Cell (RBC) Count 3.72 mill/uL (4.70-6.10); White Blood Cell (WBC) Count 5.5 thou/uL (4.8-10.8)
[2018-09-06 00:39] LABS: ALT (SGPT) 9 U/L (8-55); AST (SGOT) 25 U/L (5-34); Albumin 4.5 g/dL (3.5-5.0); Alkaline Phosphatase 63 U/L (40-150); Anion Gap 17 mmol/L (10-20); BUN (Urea Nitrogen) 6 mg/dL (8.9-20.6); Bilirubin, Total 0.4 mg/dL (0.2-1.2); Calc. Creatinine Clearance 0 mL/min (70-130); Calcium 9.2 mg/dL (7.8-10.44); Carbon Dioxide 24 mmol/L (22-29); Chloride 97 mmol/L (98-107); Estimated GFR-MDRD Greater than 90; Globulin 4.2 g/dL (2.4-3.5); Glucose 95 mg/dL (70-105); Potassium 4.1 mmol/L (3.5-5.1); Protein, Total 8.7 g/dL (6.0-8.3); Sodium 134 mmol/L (136-145)
[2018-09-06 01:50] LABS: INR-International Normal Ratio 0.9; PTT 30.1 SEC (22.9-36.1); Prothrombin Time 12.5 SEC (12.0-14.7)
[2018-09-06 02:05] LABS: Acetaminophen Less than 6.0 mcg/mL (10.0-30.0); Alcohol 320 mg/dL (Less than 10); Salicylate Less than 8.0 mg/dL (15.0-30.0)
[2018-09-06 02:46] LABS: Bilirubin Negative (Negative); Blood, Urine Negative (Negative); Clarity CLEAR (Clear); Glucose, Urine (Dipstick) Negative (Negative); Leukocyte Negative (Negative); Nitrite Negative (Negative); Protein, Urine (Dipstick) Negative (Neg-Trace); Urobilinogen 0.2 mg/dL (0.2-1.0); pH, Urine 6.5 (5.0-9.0)
--- NOTE | 2018-09-06 07:40 | CT ---
CT ABDOMEN AND PELVIS WITH IV CONTRAST: Date: 09/06/18 INDICATION: 47-year-old male with hematuria and abdominal pain. COMPARISON: Prior CT of the chest, abdomen, and pelvis dated 07/10/18. FINDINGS: Lung bases are clear. No focal hepatic lesion is evident. The pancreas, adrenal glands, and kidneys appear normal. There is scattered calcified granuloma within the spleen. No free fluid or enlarged lymph nodes are evident. There is a normal appendix in the right lower quadrant. The bladder is moderately distended with mild wall thickening. Prostate measures 4.9 cm. Unopacified large and small bowel reveal no definite acute abnormality. The transient region of small bowel intussusception is seen within the left upper quadrant of the abdomen without evidence of obst ructive physiology evident. There are mild scattered vascular calcifications involving the abdominal aorta. No definite acute osseous abnormality is evident. There is scattered degenerative and osteoarthritic change. IMPRESSION: 1. Moderate bladder distention with mild wall thickening may reflect a component of chronic bladder outlet obstruction. The prostate is enlarged measuring 5.0 cm. A component of cystitis cannot be enti rely excluded. 2. Findings of prior granulomatous disease. 3. Likely transient region of small bowel to small bowel intussusception within the left upper quadr ant of the abdomen. There is no upstream obstructive physiology observed. This can be a common phenom enon in adult patients when imaged by CT. 4. Other chronic findings as above. POS: BH
== END 2018-09-06 04:51 | disposition home or self-care (01) ==
LOC: ERS 23:38
DX: R33.9 Retention of urine, unspecified (principal); F41.9 Anxiety disorder, unspecified; F32.9 Major depressive disorder, single episode, unspecified; F17.210 Nicotine dependence, cigarettes, uncomplicated
CPT/HCPCS: 36415; 51702; 74177; 80053; 80307; 81003; 82274; 84484; 85025; 85610; 85730; 93005

== ENCOUNTER 2018-09-07 21:33 | Emergency (ER) | payer SELFPAY | END 2018-09-07 22:25 | disposition home or self-care (01) | LOC: ERS 21:33 | DX: T83.84XA Pain due to genitourinary prosthetic devices, implants and grafts, initial encounter (principal); F41.9 Anxiety disorder, unspecified; F32.9 Major depressive disorder, single episode, unspecified; F17.210 Nicotine dependence, cigarettes, uncomplicated; Z79.899 Other long term (current) drug therapy; Z86.73 Personal history of transient ischemic attack (TIA), and cerebral infarction without residual deficits | CPT/HCPCS: 93005 ==

== ENCOUNTER 2018-09-10 19:45 | Emergency (ER) | payer SELFPAY ==
[~2018-09-10 19:45] MED LIST changes: +ISOVUE-370 76%-LOCM 1 ML ONE; -Ibuprofen 200 MG TAB ONE; -traZODone HCl 50 MG TAB ONE
[2018-09-10 21:09] LABS: #Basophils 0.1 thou/uL (0.0-0.2); #Eosinphils 0.2 thou/uL (0.0-0.7); #Lymphocytes 1.4 thou/uL (1.20-3.40); #Monocytes 0.4 thou/uL (0.11-0.59); #Neutrophils 2.1 thou/uL (1.40-6.50); %Basophils 2.2 % (0.0-1.0); %Eosinophils 5.3 % (0.0-10.0); %Lymphocytes 33.3 % (21.0-51.0); %Monocytes 10.2 % (0.0-10.0); Hemoglobin 12.8 g/dL (14.0-18.0); Mean Corpuscular HGB CONC 34.9 g/dL (32.0-36.0); Mean Platelet Volume 6.5 fL (7.4-10.4); Platelet Count 173 thou/uL (130-400); RBC Distribution Width 12.8 % (11.5-14.5); Red Blood Cell (RBC) Count 3.47 mill/uL (4.70-6.10); White Blood Cell (WBC) Count 4.2 thou/uL (4.8-10.8)
--- NOTE | 2018-09-10 21:11 | RAD ---
CHEST ONE VIEW 09/10/18 HISTORY: Chest pain. COMPARISON: CT chest, abdomen and pelvis, 07/10/18. FINDINGS: Remote left posterior rib fracture. Lungs are clear. No pneumothorax. No effusion. Prominent left bas ilar nipple shadow. No acute osseous abnormality. IMPRESSION: No acute intrathoracic abnormality. Prominent nipple shadow left lung base. POS: HOME
[2018-09-10 21:14] LABS: INR-International Normal Ratio 0.9; PTT 28.6 SEC (22.9-36.1); Prothrombin Time 12.2 SEC (12.0-14.7)
[2018-09-10 21:26] LABS: MDiff Complete? YES; Macrocytosis SLIGHT = 6-15 cells (100X) (0-5/hpf); Platelet Morphology Comment Appears Adequate; Polychromasia SLIGHT = 2-3 cells (100X) (0-2/hpf)
[2018-09-10 21:30] LABS: ALT (SGPT) 10 U/L (8-55); AST (SGOT) 32 U/L (5-34); Albumin 4.3 g/dL (3.5-5.0); Alkaline Phosphatase 62 U/L (40-150); Anion Gap 17 mmol/L (10-20); BUN (Urea Nitrogen) 5 mg/dL (8.9-20.6); Bilirubin, Total 0.4 mg/dL (0.2-1.2); Calc. Creatinine Clearance 0 mL/min (70-130); Calcium 8.9 mg/dL (7.8-10.44); Carbon Dioxide 24 mmol/L (22-29); Chloride 99 mmol/L (98-107); Estimated GFR-MDRD Greater than 90; Globulin 3.6 g/dL (2.4-3.5); Glucose 87 mg/dL (70-105); Lipase 87 U/L (8-78); Potassium 4.1 mmol/L (3.5-5.1); Protein, Total 7.9 g/dL (6.0-8.3); Sodium 136 mmol/L (136-145)
[2018-09-10] MEDS ORDERED: Ketorolac Tromethamine 30 MG/ML VIAL ONE (21:47)
[2018-09-10 22:24] LABS: Bilirubin Negative (Negative); Blood, Urine Negative (Negative); Clarity CLEAR (Clear); Glucose, Urine (Dipstick) Negative (Negative); Leukocyte Negative (Negative); Nitrite Negative (Negative); Protein, Urine (Dipstick) Negative (Neg-Trace); Urobilinogen 0.2 mg/dL (0.2-1.0)
--- NOTE | 2018-09-10 23:26 | CT ---
CT abdomen with contrast CT pelvis with contrast: DATE: 09/10/2018 HISTORY: 47-year-old male with generalized abdominal pain, bloody stools, vomiting. COMPARISON: 09/06/2018 TECHNIQUE: IV injection of iodinated contrast media:Administered Oral contrast media:Not administered FINDINGS: Previously, the urinary bladder was very distended and filled with urine. Now, the urinary bladder is no longer as distended, but it has severe, diffuse mural thickening. A Jasso catheter has been placed into the lumen. There is air and fluid within the bladder lumen. No overt evidence of colitis or colonic diverticulitis. Mild to moderate gaseous distention of the rectum. Difficult to identify the appendix with certainty. No gross evidence of appendicitis. No small bowel dilation. No pneumoper itoneum or ascites. Lung bases are clear of consolidation and pleural effusion. Questionable fatty liver. No other abnormality of liver, abdominal aorta, kidneys, adrenals, pancreas, or spleen. IMPRESSION: 1) decompression of the previously severely distended urinary bladder by placement of Jasso catheter. 2) new finding of severe diffuse mural thickening of the urinary bladder: Evidence for acute cystitis . 3) no other definite pathology identified.
== END 2018-09-11 00:07 | disposition home or self-care (01) ==
LOC: ERS 19:45
DX: R07.89 Other chest pain (principal); K92.1 Melena; N40.1 Benign prostatic hyperplasia with lower urinary tract symptoms; R33.8 Other retention of urine; D64.9 Anemia, unspecified; I25.2 Old myocardial infarction; I10 Essential (primary) hypertension; J45.909 Unspecified asthma, uncomplicated; F41.9 Anxiety disorder, unspecified; F32.9 Major depressive disorder, single episode, unspecified; F17.210 Nicotine dependence, cigarettes, uncomplicated; Z79.899 Other long term (current) drug therapy; Z86.73 Personal history of transient ischemic attack (TIA), and cerebral infarction without residual deficits
CPT/HCPCS: 36415; 71045; 74177; 80053; 81003; 83690; 84484; 85025; 85610; 85730; 87086; 93005; 96374; J1885

== ENCOUNTER 2018-09-12 21:08 | Emergency (ER) | payer SELFPAY ==
[2018-09-12 22:06] LABS: #Basophils 0.1 thou/uL (0.0-0.2); #Eosinphils 0.3 thou/uL (0.0-0.7); #Lymphocytes 1.3 thou/uL (1.20-3.40); #Monocytes 0.8 thou/uL (0.11-0.59); #Neutrophils 4.5 thou/uL (1.40-6.50); %Basophils 0.9 % (0.0-1.0); %Eosinophils 4.5 % (0.0-10.0); %Lymphocytes 19.2 % (21.0-51.0); %Monocytes 10.8 % (0.0-10.0); %Neutrophils 64.5 % (42.0-75.0); Hemoglobin 11.9 g/dL (14.0-18.0); Mean Corpuscular HGB CONC 33.4 g/dL (32.0-36.0); Mean Corpuscular Hemoglobin 35.8 pg (27.0-31.0); Platelet Count 149 thou/uL (130-400); RBC Distribution Width 12.7 % (11.5-14.5); Red Blood Cell (RBC) Count 3.33 mill/uL (4.70-6.10); White Blood Cell (WBC) Count 6.9 thou/uL (4.8-10.8)
[2018-09-12 22:22] LABS: Bilirubin Negative (Negative); Blood, Urine Large (Negative); Clarity CLOUDY (Clear); Glucose, Urine (Dipstick) Negative (Negative); Leukocyte Small (Negative); Nitrite Negative (Negative); Protein, Urine (Dipstick) 30 mg/dL (Neg-Trace); Specific Gravity, Urine 1.008 (1.002-1.036); pH, Urine 6.5 (5.0-9.0)
[2018-09-12 22:25] LABS: Bacteria/HPF None Seen HPF (None Seen); Hyaline Casts/LPF 7-10 HYALINE CAST LPF (0-3 Hyaline); Pathc Cast-AUWi Flag 1.76 (0-2.49); RBC/HPF GREATER THAN 50-TNTC HPF (0-3); Squamous Epithelial 0-3 HPF (0-3)
[2018-09-12 22:32] LABS: ALT (SGPT) 9 U/L (8-55); AST (SGOT) 26 U/L (5-34); Alkaline Phosphatase 57 U/L (40-150); Anion Gap 15 mmol/L (10-20); BUN (Urea Nitrogen) 11 mg/dL (8.9-20.6); Bilirubin, Total 0.3 mg/dL (0.2-1.2); Calc. Creatinine Clearance 0 mL/min (70-130); Carbon Dioxide 24 mmol/L (22-29); Chloride 101 mmol/L (98-107); Estimated GFR-MDRD 55; Globulin 3.7 g/dL (2.4-3.5); Glucose 90 mg/dL (70-105); Potassium 4.3 mmol/L (3.5-5.1); Protein, Total 7.7 g/dL (6.0-8.3); Sodium 136 mmol/L (136-145)
== END 2018-09-12 23:13 | disposition home or self-care (01) ==
LOC: ERS 21:08
DX: Z46.6 Encounter for fitting and adjustment of urinary device (principal); I25.2 Old myocardial infarction; F41.9 Anxiety disorder, unspecified; F32.9 Major depressive disorder, single episode, unspecified; F17.210 Nicotine dependence, cigarettes, uncomplicated
CPT/HCPCS: 36415; 80053; 81003; 81015; 82274; 84484; 85025; 87086; 93005

== ENCOUNTER 2018-09-30 21:40 | Inpatient (IN) | payer SELFPAY ==
[2018-09-30] MEDS ORDERED: Nitroglycerin 2% Ointment 1 INCH/1 GM Packet ONE ×2 (22:14→22:15)
--- NOTE | 2018-09-30 22:16 | RAD ---
EXAM: Chest one view: HISTORY: Chest pain COMPARISON: 09/10/2018 FINDINGS: Healed left rib fracture Heart size: Within normal limits. Lungs: Clear of acute process. No evidence for pneumonia, pleural effusion, acute edema, or pneumothorax, or other significant acute process. IMPRESSION: No significant acute intrathoracic disease.
[2018-09-30 22:20] LABS: #Basophils 0.1 thou/uL (0.0-0.2); #Eosinphils 0.3 thou/uL (0.0-0.7); #Lymphocytes 1.9 thou/uL (1.20-3.40); #Monocytes 0.9 thou/uL (0.11-0.59); #Neutrophils 3.2 thou/uL (1.40-6.50); %Basophils 1.2 % (0.0-1.0); %Eosinophils 4.1 % (0.0-10.0); %Lymphocytes 29.7 % (21.0-51.0); Hemoglobin 12.7 g/dL (14.0-18.0); Mean Corpuscular HGB CONC 34.3 g/dL (32.0-36.0); Mean Corpuscular Hemoglobin 36.8 pg (27.0-31.0); Mean Platelet Volume 6.9 fL (7.4-10.4); Platelet Count 120 thou/uL (130-400); RBC Distribution Width 12.1 % (11.5-14.5); Red Blood Cell (RBC) Count 3.46 mill/uL (4.70-6.10); White Blood Cell (WBC) Count 6.2 thou/uL (4.8-10.8)
[2018-09-30 22:43] LABS: ALT (SGPT) 11 U/L (8-55); AST (SGOT) 27 U/L (5-34); Alkaline Phosphatase 64 U/L (40-150); Anion Gap 15 mmol/L (10-20); BUN (Urea Nitrogen) 8 mg/dL (8.9-20.6); Bilirubin, Total 0.2 mg/dL (0.2-1.2); CK (CPK) 175 U/L (30-200); Calc. Creatinine Clearance 0 mL/min (70-130); Calcium 8.7 mg/dL (7.8-10.44); Carbon Dioxide 27 mmol/L (22-29); Chloride 98 mmol/L (98-107); Estimated GFR-MDRD Greater than 90; Globulin 4.1 g/dL (2.4-3.5); Glucose 111 mg/dL (70-105); Lipase 102 U/L (8-78); Potassium 3.5 mmol/L (3.5-5.1); Protein, Total 8.1 g/dL (6.0-8.3); Sodium 136 mmol/L (136-145)
--- NOTE | 2018-10-01 00:09 | ULT ---
Exam: Right upper quadrant ultrasound: HISTORY: Abdominal pain COMPARISON: None FINDINGS: Visualized liver:Unremarkable. Gallbladder:Minimal gallbladder wall thickening. No overt gallstones or pericholecystic fluid. Patien t was tender over the gallbladder and right kidney. Moderate right renal upper collecting system dilatation. Somewhat distended urinary bladder. No right ureteral jet was seen. Common bile duct:Within normal limits. Visualized pancreas is unremarkable. No evidence for abscess or abnormal fluid collection in the right upper quadrant. IMPRESSION: Evidence for right renal upper collecting system dilatation without evidence for a right ureteral jet seen in the bladder. Gallbladder wall thickening with some pain over the gallbladder and over the region of the right kidn ey. No common duct dilatation. If there is concern for acute acalculous cholecystitis, follow-up nuclear medicine hepatobiliary scan might be considered.
[2018-10-01] MEDS ORDERED: Morphine 4 MG/ML VIAL ONE (03:47)
--- NOTE | 2018-10-01 03:48 | PDOC.FPRHP ---
- History of Present Illness Chief Complaint: Chest Pain History of Present Illness: 47 y/o M with PMHx bipolar d/o, EtOH abuse, CAD s/p OH presents to the ED complaining of chest pain. He reports the CP started a couple of weeks ago and has been getting progressively worse. It is a sharp, pressure on the left side of his chest that radiates to his left arm with associated SOB and diaphoresis. Patient reports nothing has relieved his pain including nitro or aspirin. He reports that certain movements make it worse and pushing on his chest makes it worse. He also states taking a deep breath makes it worse. He endorses an intermittent productive cough, but no fevers. ED Course: Patient was given nitro and aspirin by ED and upon arrival to ED was given nitropaste. The patient was found to have an elevated lipase that led to a RUQ US being performed. The patient was found to have hydronephrosis and a distended urinary bladder on CT. A uriostegui catheter was placed. His pain has persisted and so he is now being given 4mg morphine. - Allergies/Adverse Reactions Allergies Allergy/AdvReac Type Severity Reaction Status Date / Time No Known Drug Allergies Allergy Verified 08/29/18 01:33 - Home Medications Medication Instructions Recorded Confirmed Type Cyclobenzaprine [Flexeril] 10 mg PO TID PRN 08/30/18 09/01/18 History FLUoxetine HCl [Prozac] 20 mg PO DAILY 08/30/18 09/01/18 History Naproxen Sodium [Aleve] 220 mg PO BID #14 capsule 08/30/18 09/01/18 Rx OLANZapine [Zyprexa] 5 mg PO HS 08/30/18 09/01/18 History Acetaminophen [Tylenol Regular 650 mg PO Q4H PRN tab 09/01/18 Rx Strength] traMADol HCl [Ultram] 50 mg PO Q6H PRN tab 09/01/18 Rx - History PMHx: Bipolar, alcohol abuse, OH, CVA PSHx: none FHx: multiple 1st degree relatives with MIs Social: 2-3 32oz beers per day, 1 pack/day smoking - Review of Systems General: denies: fever/chills, fatigue Eyes: denies: eye pain, vision changes ENT: denies: nasal congestion, rhinorrhea Respiratory: reports: cough, shortness of breath Cardiovascular: reports: chest pain. denies: edema Gastrointestinal: reports: abdominal pain. denies: nausea, vomiting, diarrhea Genitourinary: denies: dysuria, polyuria Skin: denies: rashes, lesions Musculoskeletal: denies: pain, swelling Neurological: denies: numbness, weakness Psychological: denies: anxiety, depression - Vital signs BP: 115/77, Resp: 18, O2 sat: 97 on Room Air, Pulse: 65, Temp: 98.5, Weight 69.85kg - Physical Exam Constitutional: NAD, awake, alert and oriented HEENT: EOMI, conjunctiva clear, grossly normal vision, grossly normal hearing Neck: supple, no LAD -Chest: chest wall tender to palpation Heart: RRR, normal S1/S2, no murmurs/rubs/gallops, pulses present, no edema Lungs: CTAB, no respiratory distress, good air movement, no rales/rhonchi, no wheezing -Abdomen: voluntary guarding, no rebound, mildly tender to palpation, worse in suprapubic region Musculoskeletal: normal structure, normal tone Skin: no rash/lesions, good turgor, capillary refill <2 seconds Heme/Lymphatic: no unusual bruising or bleeding, no purpura Psychiatric: normal mood and affect FMR H&P: Results - Labs Result Diagrams: 09/30/18 22:08 09/30/18 22:08 Lab results: WBC 6.2 thou/uL (4.8-10.8) 09/30/18 22:08 Hgb 12.7 g/dL (14.0-18.0) L 09/30/18 22:08 Hct 37.0 % (42.0-52.0) L 09/30/18 22:08 MCV 107.0 fL (78.0-98.0) H 09/30/18 22:08 Plt Count 120 thou/uL (130-400) L 09/30/18 22:08 Neutrophils % 51.0 % (42.0-75.0) 09/30/18 22:08 Sodium 136 mmol/L (136-145) 09/30/18 22:08 Potassium 3.5 mmol/L (3.5-5.1) 09/30/18 22:08 Chloride 98 mmol/L (98-107) 09/30/18 22:08 Carbon Dioxide 27 mmol/L (22-29) 09/30/18 22:08 BUN 8 mg/dL (8.9-20.6) L 09/30/18 22:08 Creatinine 0.84 mg/dL (0.7-1.3) 09/30/18 22:08 Glucose 111 mg/dL (70-105) H 09/30/18 22:08 Calcium 8.7 mg/dL (7.8-10.44) 09/30/18 22:08 Total Bilirubin 0.2 mg/dL (0.2-1.2) 09/30/18 22:08 AST 27 U/L (5-34) 09/30/18 22:08 ALT 11 U/L (8-55) 09/30/18 22:08 Alkaline Phosphatase 64 U/L (40-150) 09/30/18 22:08 Creatine Kinase 175 U/L (30-200) 09/30/18 22:08 B-Natriuretic Peptide 14.6 pg/mL (0-100) 09/30/18 22:08 Serum Total Protein 8.1 g/dL (6.0-8.3) 09/30/18 22:08 Albumin 4.0 g/dL (3.5-5.0) 09/30/18 22:08 Lipase 102 U/L (8-78) H 09/30/18 22:08 - EKG Interpretation EKG: Rate 85, NSR - Radiology Interpretation Chest x-ray Status: image reviewed by me, report reviewed by me Additional comment: no acute intrathoracic disease FMR H&P: A/P - Problem List (1) Chest pain Current Visit: Yes Status: Acute Code(s): R07.9 - CHEST PAIN, UNSPECIFIED (2) Urinary retention Current Visit: Yes Status: Acute Code(s): R33.9 - RETENTION OF URINE, UNSPECIFIED (3) Alcohol abuse Current Visit: No Status: Acute Code(s): F10.10 - ALCOHOL ABUSE, UNCOMPLICATED (4) Bipolar disorder Current Visit: No Status: Acute Code(s): F31.9 - BIPOLAR DISORDER, UNSPECIFIED (5) Tobacco abuse disorder Current Visit: No Status: Acute Code(s): Z72.0 - TOBACCO USE - Plan Chest Pain Heart score 4. DDx: angina vs pleuritic chest pain vs costochondritis. Suspect MSK cause at this time. Trop neg x2. Pt reports a prior OH about 2 years ago. He also has extensive tobacco use hx. CXR showed no acute process. -Trend trop -Stress in AM -NPO -Aspirin -Nitro prn -If stress normal then will treat with NSAIDS for suspected MSK cause Urinary Retention Pt has been seen in ED multiple times in past month for urinary retention and has had uriostegui placed three times and subsequently removed. Presented today with urinary retention. After uriostegui placed about 2000mL urine returned within first hour. -Will consult urology and keep uriostegui in, anticipate outpatient f/u for this Substance abuse -Nicoderm patch -ASE protocol Bipolar disorder Pt not consistently taking medications. Does not appear acutely manic at this time. -Will monitor closely Code status: DNR VTE ppx: SCD's Disposition/LOS: Obs on tele, length of stay likely less than 48 hours
[2018-10-01 03:59] LABS: Bilirubin Negative (Negative); Blood, Urine Negative (Negative); Clarity CLOUDY (Clear); Glucose, Urine (Dipstick) Negative (Negative); Leukocyte Moderate (Negative); Nitrite Positive (Negative); Protein, Urine (Dipstick) Negative (Neg-Trace); Urobilinogen 0.2 mg/dL (0.2-1.0)
[2018-10-01 04:01] LABS: Bacteria/HPF 3+ HPF (None Seen); Hyaline Casts/LPF 7-10 HYALINE CAST LPF (0-3 Hyaline); Pathc Cast-AUWi Flag 1.36 (0-2.49); RBC/HPF 0-3 HPF (0-3); Squamous Epithelial None Seen HPF (0-3); WBC/HPF 21-50 HPF (0-3)
[2018-10-01 05:20] LABS: Troponin I Less than 0.010 ng/mL (< 0.028)
[2018-10-01] MEDS ORDERED: Ondansetron PF 4 MG/2 ML Vial IVP PRN (06:55)
[2018-10-01] MEDS ORDERED: Sodium Chloride 0.9% 1,000 ML IV SCH (06:55)
[2018-10-01] MEDS ORDERED: Ondansetron ODT 4 MG TAB SL PRN (06:55)
[2018-10-01] MEDS ORDERED: Nicotine 14 MG PATCH TD SCH (07:15)
[2018-10-01] MEDS ORDERED: Nitroglycerin 0.4 MG TAB (25 Tab Bottle) PO PRN (07:15)
[2018-10-01 07:20] VITALS: BMI 21.6
[2018-10-01] MEDS: Aspirin 325 mg Enteric Coated Tablet PO SCH (07:48)
[2018-10-01 07:53] LABS: Magnesium 1.8 mg/dL (1.6-2.6); Phosphorus 4.2 mg/dL (2.3-4.7)
[2018-10-01] MEDS ORDERED: Aspirin Chewable 81 MG TAB PO SCH (09:00)
--- NOTE | 2018-10-01 09:04 | CT ---
PRELIMINARY REPORT/[facility]/EMERGENCY AFTER HOURS PROCEDURE: EXAM: CT Abdomen and Pelvis Without Contrast EXAM DATE/TIME: 10/01/2018 1:03 AM CLINICAL HISTORY: 47 years old, male; Patient HX: Er 21. PT presents to ED with C/O upper abdominal pain x2days. TECHNIQUE: Imaging protocol: Axial computed tomography images of the abdomen and pelvis without contrast. COMPARISON: CT Abdomen Pelvis W Con 09/06/2018 1:19 AM FINDINGS: Lungs: No consolidations in the lung bases. Liver: No liver masses. Gallbladder and bile ducts: Normal appearance of the gallbladder. No ductal dilation. Pancreas: No pancreatic mass or ductal dilation. Spleen: No splenic masses. Adrenals: No mass. Kidneys and ureters: Mild bilateral hydroureteronephrosis secondary to marked distention of the bladd er. Stomach and bowel: No evidence of obstruction or bowel wall thickening. Appendix: Normal appendix. Intraperitoneal space: No free air or free fluid. Vasculature: No abdominal aortic aneurysm. Lymph nodes: No lymphadenopathy. Bladder: Severe distention of the bladder. Reproductive: Normal. Bones/joints: No suspicious bone lesions. Soft tissues: No acute findings. IMPRESSION: 1. Severe distention of the bladder resulting in mild bilateral hydroureteronephrosis. This finding i s similar compared to prior exam. 2. Otherwise, no acute findings in the abdomen or pelvis. Thank you for allowing us to participate in the care of your patient. Dictated and Authenticated by: Mary Lou Burger MD 10/01/2018 2:03 AM Central Time ([place] & [place]) FINAL REPORT EMERGENCY AFTER HOURS CT ABDOMEN AND PELVIS PERFORMED WITHOUT CONTRAST ENHANCEMENT: Date: 10/01/18 HISTORY: Upper abdominal pain x2 days. COMPARISON: 09/10/18. FINDINGS: The lung bases show subsegmental atelectatic change in the left base. The liver, spleen, pancreas, and gallbladder regions appear unremarkable. Right and left adrenal glands are normal in appearance. Right and left kidneys show some mild to mode rate bilateral hydronephrosis. This is associated with a very distended bladder, which is probably th e basis of the hydronephrosis. There is no significant periaortic or mesenteric adenopathy. CT of pelvis was performed without contrast enhancement. Bladder is very distended. Bladder wall appe ars thickened considering the distention. Prostate is mildly prominent. There is no pelvic lymphadeno janeth or mass. IMPRESSION: Moderate bilateral hydronephrosis related to a very distended bladder. Bladder wall is thickened in a ppearance. This report is in agreement with the preliminary report issued by [facility].
[2018-10-01] MEDS ORDERED: Tamsulosin HCl 0.4 MG CAP PO SCH (10:00)
[2018-10-01] MEDS ORDERED: Acetaminophen 325 MG TAB PO PRN (10:13)
[2018-10-01] MEDS: Cyclobenzaprine 10 MG TAB PO PRN ×2 (11:28→21:40)
[2018-10-01] MEDS ORDERED: ADENOSINE 60 MG/20 ML VIAL ONE (12:48)
[2018-10-01] MEDS ORDERED: traMADol HCl 50 MG TAB PO SCH ×2 (14:15→22:15)
--- NOTE | 2018-10-01 17:30 | NM ---
EXAM: Nuclear medicine cardiac SPECT with EF and wall motion: HISTORY: Chest pain Protocol: Exam was performed using Lexiscan protocol. The patient is injected with30.8 millicuries of technetium 99m sestamibi intravenously for stress yessenia ges. The patient is injected with9.0 millicuries of technetium 99 sestamibi intravenously for resting imag es. Multiple SPECT images are performed in the short axis, vertical long axis, and horizontal long axis. FINDINGS: No scan evidence for infarct or ischemia. TID:1.13 LHR:0.46 EDV:142 mL EF:62% Wall motion:Within normal limits. IMPRESSION: Unremarkable stress rest cardiac SPECT with EF and wall motion. No scan evidence for ischemia.
[2018-10-01] MEDS: OLANZapine 5 MG TAB PO SCH (20:10)
[2018-10-01] MEDS: Naproxen 500 MG TAB PO SCH (20:11)
[2018-10-01] MEDS ORDERED: Naproxen 500 MG TAB PO SCH (21:00)
[2018-10-01] MEDS ORDERED: Cephalexin 250 MG CAP PO SCH (21:00)
[2018-10-01] MEDS ORDERED: Diazepam 5 MG TAB PO PRN (22:10)
[2018-10-01] MEDS ORDERED: Diazepam 5 MG TAB PO SCH (22:15)
[2018-10-01] MEDS ORDERED: Ketorolac Tromethamine 60 MG/2 ML VIAL IM SCH (22:15)
[2018-10-01] MEDS ORDERED: Thiamine HCl 200 MG/2 ML VIAL IM SCH (22:15)
--- NOTE | 2018-10-01 22:58 | CON ---
DATE OF CONSULTATION: 10/01/2018 REASON FOR CONSULTATION: Urinary retention. HISTORY OF PRESENT ILLNESS: Mr. 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 The patient reports that he consumes large amounts of alcohol, generally 2-3 32 ounce beers per day. This amounts to at least 56 alcohol units per week. The patient reports that lately he has had progressively more difficulty with his voiding. He has not really been able to void adequately for about 4 weeks. He reports increasing urinary frequency, straining, and sensation of incomplete bladder emptying. The patient is also admitted with a rule out OR status and I did have to wait on him for a bit today for him to come back from a stress test study. Mr. Bell does not report previously having been seen by urologist and specifically denies a history of kidney stones. He is unaware of his PSA number. He does not report any sexually transmitted diseases. PAST MEDICAL HISTORY: 1. Bipolar disorder. 2. Alcoholism. 3. Possible myocardial infarction. 4. CVA. PAST SURGICAL HISTORY: None. FAMILY MEDICAL HISTORY: The patient reports his mother, father, a brother and sister have all had myocardial infarctions. He reports both his parents and his brother and sister have passed from myocardial infarctions and that his brother and sister both were on hemodialysis. He has 2 additional sisters who are thought to be healthy. The patient is estranged from his family, which lives in the [facility]. SOCIAL HISTORY: The patient reports that he is a 1 pack-a-day smoker for only about the last 8 months or so. He was a nonsmoker prior to that by his report. The patient consumes 2-3 32 ounce beers per day. REVIEW OF SYSTEMS: CONSTITUTIONAL: The patient is reporting to me that he is having chills. HEAD, EYES, EARS, NOSE, AND THROAT: Negative for vision and eye problems. RESPIRATORY: The patient reports a cough and definitely has 1 today. Does report a little bit of shortness of breath. CARDIOVASCULAR: There is a complaint of chest pain. GASTROINTESTINAL: The patient reports vague abdominal pain, which is improved since Jasso catheter was placed, possibly consistent with the outlet obstruction and urinary retention. GENITOURINARY: No history of previous issues, specifically denying kidney stones and past prostate problems. He denies sexually transmitted disorders. MUSCULOSKELETAL: Negative. NEUROLOGIC: Negative. PSYCHOLOGICAL: The patient does have anxiety and some depression symptoms. Also possible polysubstance abuse with narcotics and alcohol. PHYSICAL EXAMINATION: VITAL SIGNS: Temperature is 98.3, pulse 65, respirations 22, O2 saturation is 95% on room air, and blood pressure is 126/72. HEAD, EYES, EARS, NOSE, AND THROAT: Extraocular movements are intact. Sclerae anicteric. Oropharynx is clear. NECK: Supple. LUNGS: Clear to auscultation bilaterally. There is a cough present. The patient has slight coarse airway sounds on the left side. ABDOMEN: Soft and nontender. There is no palpable mass. There is no suprapubic fullness, as the patient does have an indwelling Jasso. BACK: No costovertebral angle tenderness on either side. GENITOURINARY: The patient has uncircumcised phallus, indwelling Jasso catheter is in place and is draining clear urine without evidence of pyuria. Scrotal examination, bilateral testes appear benign. Upper aspect of the patient's inguinal canal on each side seems to be more tender than normal. Digital rectal examination is performed, the patient is only able to tolerate the rectal portion of the examination and is having difficulty with the prostate portion potentially point to acute prostatitis as an issue. EXTREMITIES: Appear otherwise within normal limits. NEUROLOGIC: Cranial nerves 3 through 11 appear grossly intact. Gait was not assessed in this patient due to his presumed cardiac issues. MUSCULOSKELETAL: There are no gross deformities or other issues at the present time. LABORATORY STUDIES: The patient has troponins within the normal range. The patient's current hemoglobin is 12.7 with hematocrit of 37.0, white count is 6.2. The ANC is not elevated at 3.2. Serum chemistry showed a blood urea nitrogen of 8 mg/dL and creatinine of 0.84. PSA returned at 7.74 on 10/01/2018. The patient's admission urinalysis showed urine specific gravity of 1.010. He was nitrite positive, moderate leukocyte esterase present, 21-50 white cells per high-power field and 0-3 red cells per high-power field. Urine bacteria were 3+. Urine culture apparently remains pending. Urine opiates screen performed on 08/28/2018 showed detection of opioids as well as a plasma alcohol of 320 mg/dL, which is quite elevated. ASSESSMENT AND PLAN: 1. Acute urinary retention. This appears to be due to probable prostate level issues. I cannot rule out urethral stricture at the present time, but that certainly could be performed on a followup evaluation. Digital rectal examination suggests the patient either has an anal fissure or prostatitis and I am favoring prostatitis given the current findings. 2. Management of urinary retention. The patient should be able to be discharged with indwelling Jasso catheter in place and may follow up in my office for a voiding trial. PLAN: Will be to discharge the patient on appropriate antibiotic coverage if culture results become available during this hospitalization, otherwise appropriate gram-negative coverage in the current setting would be a fluoroquinolone, Cefzil or doxycycline. 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 In addition, I am recommending Flomax twice a day and finasteride daily. The patient may follow up in my office for further evaluation, assessment, and voiding trial. Over 70 minutes of initial consultation and assessment time was spent in evaluation of this patient today exclusive of any procedures performed. Job ID: [id number]
[2018-10-02] MEDS ORDERED: Diazepam 5 MG TAB PO PRN (04:00)
[2018-10-02 05:56] LABS: #Eosinphils 0.1 thou/uL (0.0-0.7); #Lymphocytes 1.2 thou/uL (1.20-3.40); #Monocytes 0.6 thou/uL (0.11-0.59); #Neutrophils 4.1 thou/uL (1.40-6.50); %Basophils 0.5 % (0.0-1.0); %Eosinophils 2.4 % (0.0-10.0); %Lymphocytes 19.5 % (21.0-51.0); %Monocytes 9.2 % (0.0-10.0); %Neutrophils 68.5 % (42.0-75.0); Hemoglobin 12.6 g/dL (14.0-18.0); Mean Corpuscular HGB CONC 33.2 g/dL (32.0-36.0); Mean Corpuscular Hemoglobin 36.5 pg (27.0-31.0); Mean Platelet Volume 7.8 fL (7.4-10.4); Platelet Count 104 thou/uL (130-400); RBC Distribution Width 12.3 % (11.5-14.5); Red Blood Cell (RBC) Count 3.46 mill/uL (4.70-6.10); White Blood Cell (WBC) Count 5.9 thou/uL (4.8-10.8)
[2018-10-02 06:11] LABS: Anion Gap 11 mmol/L (10-20); BUN (Urea Nitrogen) 11 mg/dL (8.9-20.6); Calc. Creatinine Clearance 111 mL/min (70-130); Calcium 9.1 mg/dL (7.8-10.44); Carbon Dioxide 30 mmol/L (22-29); Chloride 99 mmol/L (98-107); Cholesterol 172 mg/dl (< 200 Desired); Estimated GFR-MDRD Greater than 90; Glucose 74 mg/dL (70-105); HDL Cholesterol 88 mg/dL (>60 Neg Risk); LDL Cholesterol, Calculated 70 mg/dL; Potassium 3.6 mmol/L (3.5-5.1); Sodium 136 mmol/L (136-145); Triglycerides 68 mg/dL (Less than 150)
--- NOTE | 2018-10-02 06:55 | PDOC.FM ---
- Subjective Subjective: NAEO. Patient resting comfortably in bed. States his chest pain has resolved. Endorses mild pain in his abdomen, mostly suprapubic and right sided. - Objective MAR Reviewed: Yes Vital Signs & Weight: Vital Signs (12 hours) Temp Pulse Resp BP BP Pulse Ox 10/02/18 04:10 98.2 F 52 L 17 133/79 133/79 97 10/01/18 23:25 97.7 F 56 L 20 141/83 H 97 10/01/18 23:00 141/83 H 10/01/18 20:00 138/84 10/01/18 19:34 98.3 F 65 20 138/84 95 Weight Weight 70.534 kg I&O: 09/30/18 10/01/18 10/02/18 06:59 06:59 06:59 Intake Total 1475 Output Total 1850 Balance -375 Result Diagrams: 10/02/18 04:30 10/02/18 04:30 Phys Exam - Physical Examination Constitutional: NAD HEENT: PERRLA, moist MMs Neck: supple, full ROM Respiratory: clear to auscultation bilateral Cardiovascular: RRR Gastrointestinal: soft, no distention mild TTP suprapubic and RLQ Musculoskeletal: no edema, pulses present Neurological: non-focal, moves all 4 limbs Psychiatric: normal affect, A&O x 3 Skin: no rash, normal turgor, cap refill <2 seconds Dx/Plan (1) Chest pain Code(s): R07.9 - CHEST PAIN, UNSPECIFIED Status: Acute (2) Urinary retention Code(s): R33.9 - RETENTION OF URINE, UNSPECIFIED Status: Acute (3) Alcohol abuse Code(s): F10.10 - ALCOHOL ABUSE, UNCOMPLICATED Status: Acute (4) Bipolar disorder Code(s): F31.9 - BIPOLAR DISORDER, UNSPECIFIED Status: Acute (5) Depression Code(s): F32.9 - MAJOR DEPRESSIVE DISORDER, SINGLE EPISODE, UNSPECIFIED Status : Acute (6) Tobacco abuse disorder Code(s): Z72.0 - TOBACCO USE Status: Acute - Plan Plan: Urinary Retention, suspect prostatitis Pt has been seen in ED multiple times in past month for urinary retention and has had uriostegui placed three times and subsequently removed. Presented with urinary retention. After uriostegui placed about 2000mL urine returned within first hour. - Urology consulted, plan to keep uriostegui in place and f/u outpatient - Flomax BID, Finasteride Daily - Patient also started on ciprofloxacin - will need 1 month treatment Chest Pain Heart score 4. DDx: angina vs pleuritic chest pain vs costochondritis. Suspect MSK cause at this time. Trop neg x3. Pt reports a prior [facility] about 2 years ago. He also has extensive tobacco use hx. CXR showed no acute process. - Stress showing no reversible ischemia EF 62% - Aspirin - Nitro prn - Will treat pain with NSAIDS for suspected MSK cause Substance abuse - Nicoderm patch - ASE protocol Bipolar disorder Pt not consistently taking medications. Does not appear acutely manic at this time. - Will monitor closely, will restart sertraline Code status: DNR VTE ppx: SCD's Disposition/LOS: likely dc later today
[2018-10-02] MEDS ORDERED: Tamsulosin HCl 0.4 MG CAP PO SCH (09:00)
[2018-10-02] MEDS: Aspirin 325 mg Enteric Coated Tablet PO SCH (09:09)
[2018-10-02] MEDS: Magnesium Oxide 400 MG TAB PO SCH (09:10)
[2018-10-02] MEDS: Multivitamin W/ Minerals 1 TAB PO SCH (09:10)
[2018-10-02] MEDS: Naproxen 500 MG TAB PO SCH ×2 (09:10→20:16)
[2018-10-02] MEDS: Folic Acid 1 MG TAB PO SCH (09:10)
[2018-10-02] MEDS: Finasteride 5 MG TAB PO SCH (09:10)
[2018-10-02] MEDS: Tamsulosin HCl 0.4 MG CAP PO SCH ×2 (09:10→20:16)
[2018-10-02] MEDS: Thiamine 100 MG TAB PO SCH (09:10)
[2018-10-02] MEDS: FLUoxetine HCl 20 MG CAP PO SCH (09:10)
[2018-10-02] MEDS: Nicotine 14 MG PATCH TD SCH (09:11)
[2018-10-02] MEDS: Cyclobenzaprine 10 MG TAB PO PRN ×2 (13:22→19:34)
[2018-10-02] MEDS: OLANZapine 5 MG TAB PO SCH (20:16)
[2018-10-02] MEDS: Ciprofloxacin 500 MG TAB PO SCH (20:17)
[2018-10-03] MEDS: Ciprofloxacin 500 MG TAB PO SCH (05:47)
[2018-10-03] MEDS: Cyclobenzaprine 10 MG TAB PO PRN (05:50)
[2018-10-03] MEDS: Finasteride 5 MG TAB PO SCH (08:29)
[2018-10-03] MEDS: Naproxen 500 MG TAB PO SCH (08:29)
[2018-10-03] MEDS: Tamsulosin HCl 0.4 MG CAP PO SCH (08:30)
[2018-10-03] MEDS: Aspirin 325 mg Enteric Coated Tablet PO SCH (08:31)
[2018-10-03] MEDS: Folic Acid 1 MG TAB PO SCH (08:31)
[2018-10-03] MEDS: Magnesium Oxide 400 MG TAB PO SCH (08:31)
[2018-10-03] MEDS: FLUoxetine HCl 20 MG CAP PO SCH (08:31)
[2018-10-03] MEDS: Multivitamin W/ Minerals 1 TAB PO SCH (08:32)
[2018-10-03] MEDS: Thiamine 100 MG TAB PO SCH (08:32)
[2018-10-03] MEDS: Nicotine 14 MG PATCH TD SCH (08:32)
--- NOTE | 2018-10-03 08:44 | HP ---
ADDENDUM: Please see the history and physical done by Dr. Lluvia Deshpande, for which I agree. Also please see the progress note on the same patient by Dr. Mary Nolan, for which I agree. The patient is seen, evaluated, and discussed with residents by bedside. HISTORY OF PRESENT ILLNESS: This is a 47-year-old gentleman with questionable history of coronary artery disease in the past, who comes in with a 3-week history of chest pain, but it is reproducible and we can palpate the chest wall and reproduce the pain, so it seems to be more costochondritis. But on the workup, they did a CT of his abdomen and noted an extremely distended bladder, bad enough that it was actually even pushing up into the kidney areas and causing some hydronephrosis. Kidney function was still okay though. We then put a Jasso and got 2 L out by report. So, CT did show a thickened bladder wall even despite being distended. Prostate was a little bit enlarged as well. He is going down for stress test this morning. Allergies, home medicines, history, family history, social history, review of systems, all per the resident's history and physical, which I agree. PHYSICAL EXAMINATION: GENERAL: No apparent distress. ENT: Fairly within normal limits. CHEST: Clear. When we palpate his chest wall, it definitely reproduces the pain. CARDIOVASCULAR: Regular rate and rhythm. ABDOMEN: Benign, but he has an extremely tender suprapubic area with firmness there, even though he has a Jasso catheter in place. The catheter urine looks fairly normal. LAB WORKUP: Normal white count. Hemoglobin a little bit low at 12.7. Urinalysis definitely looks infected, nitrite positive. CT, as described above. ASSESSMENT AND PLAN: 1. Chest pain, sounds like costochondritis. We will get the stress test considering his history, but have some concerns that this truly represents cardiac disease. 2. Urinary retention and likely urinary tract infection. We will get Urology involved. He has thickened bladder wall with this and incredible amount of retention. Keep the Jasso catheter in the meantime, get a urine culture, and we will put him on Levaquin in the meantime. 3. Substance abuse history protocol. 4. Bipolar disorder. Make sure he resumes home medications. Job ID: [id number]
--- NOTE | 2018-10-03 09:28 | PDOC.FM ---
- Subjective Subjective: Mr. Bell is doing well today. He is still experiencing suprapubic tenderness. He has no other complaints. - Objective Vital Signs & Weight: Vital Signs (12 hours) Temp Pulse Resp BP BP Pulse Ox 10/03/18 07:58 98.3 F 64 18 131/83 98 10/03/18 04:09 98.2 F 53 L 17 129/79 97 10/03/18 04:00 129/79 10/03/18 00:18 98.5 F 58 L 20 121/78 97 10/03/18 00:00 121/78 Weight Weight 70.534 kg I&O: 10/02/18 10/03/18 10/04/18 06:59 06:59 06:59 Intake Total 1475 450 Output Total 1850 2700 Balance -375 -2250 Result Diagrams: 10/02/18 04:30 10/02/18 04:30 Phys Exam - Physical Examination Constitutional: NAD Respiratory: no wheezing, no rales, clear to auscultation bilateral Cardiovascular: RRR, no significant murmur Musculoskeletal: no edema, pulses present Psychiatric: A&O x 3 Skin: no rash -: Uriostegui catheter placed, + suprapubic tenderness Dx/Plan (1) Prostatitis Code(s): N41.9 - INFLAMMATORY DISEASE OF PROSTATE, UNSPECIFIED Status: Acute (2) BPH (benign prostatic hyperplasia) Code(s): N40.0 - BENIGN PROSTATIC HYPERPLASIA WITHOUT LOWER URINRY TRACT SYMP Status: Acute (3) Chest pain Code(s): R07.9 - CHEST PAIN, UNSPECIFIED Status: Acute (4) Urinary retention Code(s): R33.9 - RETENTION OF URINE, UNSPECIFIED Status: Acute (5) Alcohol abuse Code(s): F10.10 - ALCOHOL ABUSE, UNCOMPLICATED Status: Acute (6) Tobacco abuse disorder Code(s): Z72.0 - TOBACCO USE Status: Acute - Plan Plan: - Plan Plan: Urinary Retention, suspect prostatitis, possible BPH but less likely Pt has been seen in ED multiple times in past month for urinary retention and has had uriostegui placed three times and subsequently removed. Presented with urinary retention. After uriostegui placed about 2000mL urine returned within first hour. Urine cx grew E. coli. - Urology consulted, will follow up as outpatient, continue uriostegui catheter until follow up - Flomax BID, Finasteride Daily - Patient also started on ciprofloxacin (day )- will need 1 month treatment Chest Pain Heart score 4. DDx: angina vs pleuritic chest pain vs costochondritis. Suspect MSK cause at this time. Trop neg x3. Pt reports a prior [place] about 2 years ago. He also has extensive tobacco use hx. CXR showed no acute process. - Stress showing no reversible ischemia EF 62% - Aspirin - Nitro prn - Will treat pain with NSAIDS for suspected MSK cause Substance abuse - Nicoderm patch - ASE protocol - Discussed alcohol use and he endorsed intentions to stop, will discharge with Librium taper to prevent withdrawal. Bipolar disorder Pt not consistently taking medications. Does not appear acutely manic at this time. - Will monitor closely, will restart sertraline Code status: DNR VTE ppx: SCD's Disposition/LOS: likely dc later today
--- NOTE | 2018-10-03 11:36 | PRG ---
DATE OF SERVICE: 10/03/2018 Mr. Bell is a pleasant 47-year-old man who was admitted with some atypical chest pain. His stress Myoview was negative for ischemia. He was also noted to have significant urinary retention requiring the placement of Jasso catheter. He was seen in consultation by the Urology Service, who started Flomax, finasteride, and Cipro feeling that some of symptoms may be related to prostatitis. He will likely be discharged later today for followup with Urology. Job ID: [id number]
[2018-10-03] MEDS ORDERED: Calcium Carbonate 500 MG ChewTAB PO PRN (13:02)
[2018-10-03 15:47] VITALS: BP 128/82; TEMP 98.2
--- NOTE | 2018-10-03 16:13 | PRG ---
DATE OF SERVICE: 10/02/2018 ADDENDUM: Please see the note done by Dr. Nolan for which I agree. The patient was seen, evaluated, discussed, and examined with the residents by bedside. Stress test was negative yesterday. Complaining of less chest pain, still a little bit of tenderness to the chest wall itself. Cardiovascular is regular rate and rhythm. Abdomen is benign. Still a little bit of suprapubic discomfort. Neurology thought this is likely prostatitis and BPH causing the urinary outlet obstruction. They recommend sending now with a Jasso and a bag and on antibiotics, Flomax and finasteride. He sounds like he is functionally homeless, does not have health insurance, so we have to figure how we can get him medicines and make sure we get him a followup to be able to take care of the Jasso as an outpatient, but otherwise, he is ready to go. He may not be able actually leave until tomorrow, on Wednesday, to make sure all these things are lined up for him. He will be on a month's worth of antibiotics. Job ID: [id number]
--- NOTE | 2018-10-04 19:46 | DIS ---
DATE OF ADMISSION: 10/01/2018 DATE OF DISCHARGE: 10/03/2018 RESIDENT: Daniel Nava DO ADMITTING ATTENDING: Dominic Rock MD DISCHARGE ATTENDING: Adolfo Cruz MD. CONSULTS: Urology was consulted to Dr. Christopher Rodrigez. PROCEDURES PERFORMED: One-view portable chest x-ray on 09/30/2018, revealed no significant acute intrathoracic disease. Ultrasound of gallbladder and right upper quadrant revealed evidence for right renal upper collecting system dilation without evidence for right ureteral jet seen in the bladder. Gallbladder wall thickening with some over gallbladder and over the region of the right kidney. No common duct dilation. If there is concern for acute acalculous cholecystitis, followup nuclear medicine, HIDA biliary scan might be considered. Abdomen and pelvis CT without contrast on 10/01/2018, revealed moderate bilateral hydronephrosis related to a very distended bladder. Bladder wall was thickened in appearance. Nuclear stress test on 10/01/2018, revealed an unremarkable stress and rest cardiac SPECT with EF and wall motion. No scan evidence for ischemia. EKG on admission revealed a rate of 85 and normal sinus rhythm. DISCHARGE DIAGNOSES: Chest pain secondary to costochondritis, benign prostatic hyperplasia, prostatitis, urinary retention, alcohol abuse, tobacco abuse disorder, and bipolar disorder. ADMISSION DIAGNOSES: Chest pain, alcohol abuse, tobacco abuse disorder, and urinary retention. DISCHARGE MEDICATIONS: 1. Tylenol Regular Strength 650 mg p.o. q.4 hours p.r.n. 2. Aspirin 325 mg p.o. daily. 3. Ciprofloxacin 500 mg p.o. b.i.d. 4. Finasteride 5 mg p.o. daily. 5. Fluoxetine 20 mg p.o. daily. 6. Naproxen 250 mg p.o. b.i.d. 7. Olanzapine 5 mg p.o. at bedtime. 8. Flomax 0.4 mg p.o. b.i.d. HOSPITAL COURSE: Mr. Bell is a 47-year-old male with past medical history significant for EtOH abuse, bipolar, and homelessness, who presented to the ED complaining of chest pain. He reported the chest pain started a couple of weeks ago and progressively became worse. It is a sharp pressure on the left side of the chest, that radiates to his left arm causing associated shortness of breath and diaphoresis. He reports nothing else relieved his pain including nitroglycerin and aspirin. He reports that certain movements make it worse and palpitation elicits pain. He as well endorses pleuritic chest pain and intermitted productive cough. He denies fevers. Consequently due to an elevated lipase, a right upper quadrant ultrasound was performed revealing hydronephrosis, and a distended urinary bladder on CT. At this time, a Jasso catheter was placed. This was confirmed with a CT of the abdomen and pelvis. On 10/01, nuclear stress test was performed revealing no wall motion abnormalities or coronary artery blockages. His chest pain was alleviated with NSAIDs. Urology was consulted, who recommended leaving his Jasso catheter in place. At this time, he was also started on finasteride and Flomax. It was felt that his symptoms are secondary to either prostatitis for which he was started on ciprofloxacin and BPH for which the finasteride and Flomax were started. Throughout the course of his stay, UA is fine. Due to the complication of his homelessness and inability to acquire medications, to work with Case Management to appropriately facilitate medications. Mr. Robert remains stable throughout the week until Wednesday when he was discharged. The Jasso catheter was left in place with an understanding that he will need to follow up with Dr. Rodrigez. He was also on protocol for his alcohol abuse. He did state that he had at least 4 beers per day, and he did require benzodiazepine treatment. On discharge, we prescribed him with a Librium taper and discussed with risk with alcohol use and benefits to prevent seizure activity. DISPOSITION: Stable. DISCHARGE INSTRUCTIONS: LOCATION: [facility]. DIET: Regular diet. No restrictions. ACTIVITY: Ad hawa. FOLLOWUP: Follow up with Dr. Rodrigez in 7 to 10 days and follow up with [facility] of [facility] in 7 days. Job ID: [id number]
== END 2018-10-03 17:27 | disposition home or self-care (01) | DRG 728 ==
LOC: ERS 21:40 → 2SW 10-01 07:11 → OBSVTOIN 10-01 07:11
PROVIDERS: ADMIT Family Medicine; ATTEND Family Medicine
DX: N41.0 Acute prostatitis (principal); N13.8 Other obstructive and reflux uropathy; Z66 Do not resuscitate; F31.9 Bipolar disorder, unspecified; R07.89 Other chest pain; I25.10 Atherosclerotic heart disease of native coronary artery without angina pectoris; F41.9 Anxiety disorder, unspecified; F17.210 Nicotine dependence, cigarettes, uncomplicated; Z79.899 Other long term (current) drug therapy; I25.2 Old myocardial infarction; Z86.73 Personal history of transient ischemic attack (TIA), and cerebral infarction without residual deficits; Z91.14 Patient's other noncompliance with medication regimen
CPT/HCPCS: 36415; 71045; 74176; 76705; 78452; 80048; 80053; 80061; 81003; 81015; 82550; 83690; 83735; 83880; 84100; 84484; 85025; 87077; 87086; 87186; 90471; 90732; 93005; 93017; 94760; A9500; G0009; G0103; J0153; J2270; J3411; J3475; J3490

== ENCOUNTER 2018-10-04 17:34 | Emergency (ER) | payer SELFPAY ==
[2018-10-04 19:50] LABS: Bilirubin Negative (Negative); Blood, Urine 2+ (Negative); Clarity Clear (Clear); Glucose, Urine (Dipstick) Normal (Negative); Leukocyte Negative Leu/uL (Negative); Nitrite Negative (Negative); Protein, Urine (Dipstick) Negative (Neg-Trace); RBC/HPF 21-50 HPF (0-3); Urobilinogen Normal mg/dL (Less than 2)
[2018-10-04 19:50] LABS: #Eosinphils 0.2 thou/uL (0.0-0.7); #Lymphocytes 1.8 thou/uL (1.20-3.40); #Monocytes 1.2 thou/uL (0.11-0.59); #Neutrophils 4.9 thou/uL (1.40-6.50); %Basophils 0.5 % (0.0-1.0); %Eosinophils 2.8 % (0.0-10.0); %Lymphocytes 21.8 % (21.0-51.0); %Monocytes 14.4 % (0.0-10.0); %Neutrophils 60.5 % (42.0-75.0); Hemoglobin 12.5 g/dL (14.0-18.0); Mean Corpuscular HGB CONC 33.6 g/dL (32.0-36.0); Mean Corpuscular Hemoglobin 36.1 pg (27.0-31.0); Mean Platelet Volume 7.3 fL (7.4-10.4); Platelet Count 114 thou/uL (130-400); RBC Distribution Width 11.7 % (11.5-14.5); Red Blood Cell (RBC) Count 3.46 mill/uL (4.70-6.10); White Blood Cell (WBC) Count 8.1 thou/uL (4.8-10.8)
[2018-10-04 20:11] LABS: ALT (SGPT) 46 U/L (8-55); AST (SGOT) 113 U/L (5-34); Albumin 4.2 g/dL (3.5-5.0); Alkaline Phosphatase 68 U/L (40-150); Anion Gap 16 mmol/L (10-20); BUN (Urea Nitrogen) 16 mg/dL (8.9-20.6); Bilirubin, Total 0.4 mg/dL (0.2-1.2); Calc. Creatinine Clearance 0 mL/min (70-130); Calcium 9.1 mg/dL (7.8-10.44); Carbon Dioxide 22 mmol/L (22-29); Chloride 104 mmol/L (98-107); Estimated GFR-MDRD 77; Globulin 3.9 g/dL (2.4-3.5); Glucose 85 mg/dL (70-105); Potassium 4.1 mmol/L (3.5-5.1); Protein, Total 8.1 g/dL (6.0-8.3); Sodium 138 mmol/L (136-145)
--- NOTE | 2018-10-04 21:02 | CT ---
NONCONTRAST CT ABDOMEN AND PELVIS: 10/04/18 HISTORY: Abdominal pain which started last night and is progressively worsened throughout the day. Hematuria. Nausea and vomiting. COMPARISON: 10/01/18. FINDINGS: There is dependent atelectasis present at the right lung base. The lung bases are otherwise clear. There are extrarenal pelves bilaterally with mild caliectasis seen on the left. The mild lateral hydr onephrosis on the prior exam has improved. Distention of the urinary bladder is again present but als o less prominent than on the prior exam. Wall of the urinary bladder is mildly thickened, but this is also a stable finding. No renal or ureteral calculi are seen bilaterally. There is mild prominence o f each ureter. Findings are likely attributable to mild distention of the urinary bladder. Multiple splenic granulomata are again seen related to prior granulomatous disease. The liver, pancreas, and bilateral adrenal glands demonstrate grossly normal nonenhanced CT appearanc e. There is a small to moderate amount of retained fecal material seen throughout the colon predominantl y involving the ascending colon and the transverse colon. The appendix is visualized and normal in caliber. Loops of small bowel are normal in caliber. Degenerative changes are again seen in the spine. Sclerotic densities are seen in the proximal right femur demonstrating characteristics compatible with small bowel islands. IMPRESSION: 1. Improvement in mild bilateral hydronephrosis with mild pelvicaliectasis present on the left. Urinary bladder is distended, but there is less distention than on the prior examination. In additio n, torres of the urinary bladder are mildly thickened which is similar to the prior study. This could be related to cystitis in the correct clinical scenario or secondary to longstanding bladder outlet o bstruction. 2. No renal or ureteral calculi bilaterally. 3. No CT evidence of appendicitis. 4. Small to moderate amount of retained fecal material seen throughout the colon. POS: [facility]
== END 2018-10-04 22:41 | disposition home or self-care (01) ==
LOC: ERS 17:34
DX: R31.9 Hematuria, unspecified (principal); I25.2 Old myocardial infarction; I10 Essential (primary) hypertension; F41.9 Anxiety disorder, unspecified; F32.9 Major depressive disorder, single episode, unspecified; F17.210 Nicotine dependence, cigarettes, uncomplicated; Z79.899 Other long term (current) drug therapy; Z79.82 Long term (current) use of aspirin
CPT/HCPCS: 36415; 74176; 80053; 81003; 85025; 86850; 86900; 86901

== ENCOUNTER 2018-10-30 21:19 | Emergency (ER) | payer SELFPAY ==
[2018-10-30 22:12] LABS: Bilirubin Negative (Negative); Blood, Urine Negative (Negative); Clarity Clear (Clear); Glucose, Urine (Dipstick) Normal (Negative); Leukocyte Negative Leu/uL (Negative); Nitrite Negative (Negative); Protein, Urine (Dipstick) Negative (Neg-Trace); Urobilinogen Normal mg/dL (Less than 2)
[2018-10-30 22:27] LABS: Hemoglobin 13.5 g/dL (14.0-18.0); Mean Corpuscular HGB CONC 33.4 g/dL (32.0-36.0); Mean Corpuscular Hemoglobin 34.9 pg (27.0-31.0); Mean Platelet Volume 7.2 fL (7.4-10.4); Platelet Count 111 thou/uL (130-400); RBC Distribution Width 11.7 % (11.5-14.5); Red Blood Cell (RBC) Count 3.88 mill/uL (4.70-6.10); White Blood Cell (WBC) Count 4.6 thou/uL (4.8-10.8)
[2018-10-30 22:46] LABS: ALT (SGPT) 69 U/L (8-55); AST (SGOT) 92 U/L (5-34); Alkaline Phosphatase 56 U/L (40-150); Anion Gap 13 mmol/L (10-20); BUN (Urea Nitrogen) 5 mg/dL (8.9-20.6); Band 4 % (5-11); Bilirubin, Total 0.2 mg/dL (0.2-1.2); Calc. Creatinine Clearance 0 mL/min (70-130); Calcium 8.9 mg/dL (7.8-10.44); Carbon Dioxide 24 mmol/L (22-29); Chloride 100 mmol/L (98-107); Estimated GFR-MDRD Greater than 90; Globulin 3.8 g/dL (2.4-3.5); Glucose 101 mg/dL (70-105); Lymphocytes 27 % (21-51); MDiff Complete? YES; Monocytes 8 % (0-10); Neutrophil 61 % (42-75); Platelet Morphology Comment Appears Decreased; Potassium 3.6 mmol/L (3.5-5.1); Protein, Total 7.8 g/dL (6.0-8.3); RBC Morphology Normal; Sodium 133 mmol/L (136-145)
[2018-10-31] MEDS ORDERED: Acetaminophen 500 MG TAB ONE (00:30)
[2018-10-31 00:45] LABS: Troponin I Less than 0.010 ng/mL (< 0.028)
--- NOTE | 2018-10-31 07:42 | RAD ---
EXAM: Single view of the chest HISTORY: Chest and abdominal pain COMPARISON: 09/30/2018 FINDINGS: Single view of the chest shows an enlarged but stable cardiomediastinal silhouette. There i s no evidence of consolidation, mass, or pleural effusion. There is a remote left healed rib fracture. IMPRESSION: No evidence of acute cardiopulmonary disease
== END 2018-10-31 01:09 | disposition home or self-care (01) ==
LOC: ERS 21:19
DX: R10.9 Unspecified abdominal pain (principal); R10.817 Generalized abdominal tenderness; I25.2 Old myocardial infarction; F31.9 Bipolar disorder, unspecified; I10 Essential (primary) hypertension; F17.210 Nicotine dependence, cigarettes, uncomplicated; Z86.73 Personal history of transient ischemic attack (TIA), and cerebral infarction without residual deficits
CPT/HCPCS: 36415; 71045; 80053; 81003; 83690; 84484; 85025; 86850; 86900; 86901; 93005